=== PATIENT | female | born 1950 | race Caucasian/White ===

== ENCOUNTER 2019-09-14 14:16 | Outpatient (CLI) | payer MEDICARE, MEDICAID, SELFPAY ==
--- NOTE | 2019-09-14 14:25 | XR_ITS ---
WS: [id number] SCREENING DEXA SCAN NATIONSPLAY CLINICAL INFORMATION: POST MENOPAUSAL COMPARISON: None. FINDINGS: The L1-L4 bone mineral density measures 1.065 g/cm2. This corresponds to a T score score of -1.0 and Z score of -0.5. Left femoral neck bone mineral density measures 0.809 g/cm2. This corresponds to a T score of -1.6 an d Z score of -1.0. Right femoral neck bone mineral density measures 0.849 g/cm2. This corresponds to a T score -1.3of an d Z score of -0.7. Mean femoral neck bone mineral density measures 0.829 g/cm2. This corresponds to a T score of -1.4 an d Z score of -0.8. XR/XR DEXA axial skeleton* [id number] IMPRESSION: Osteopenia. Patient's FRAX calculated 10 year probability for major osteoporotic fracture i s 13.5 % and osteoporotic hip fracture is 4.8%.
== END 2019-09-14 14:17 | disposition home or self-care (01) ==
LOC: RADWPI 14:23
PROVIDERS: Family Provider Internal Medicine; PCP Internal Medicine; Visit Provider Internal Medicine
DX: Z78.0 Asymptomatic menopausal state (principal); M85.89 Other specified disorders of bone density and structure, multiple sites
CPT/HCPCS: 77080

== ENCOUNTER 2021-01-11 09:51 | Day surgery (SDC) | payer MEDICARE, MEDICAID, SELFPAY ==
[2021-01-11] VITALS (7 sets, daily range): BP systolic 119–152; BP diastolic 61–88; PULSE 65–84; RESP 16–19; TEMP 36.3–36.8; O2SAT 94–98; BMI 49.4
--- NOTE | 2021-01-11 09:56 | ED_ITS ---
HPI - Skin/Abscess/Foreign Bdy General: Chief complaint: General Medical Stated complaint: [facility] sent for drainage Time Seen by Provider: 01/11/21 09:53 History of Present Illness: HPI narrative: 70-year-old female has an abscess of the left breast. She has an inverted nipple as well. She has had this abscess flareup several times in the past I recommended incision and drainage and she is declined she did have a culture to grew out MRSA per her report in the past. She denies any fever sweats or chills recently in the last week or so it has becoming increasing painful swollen and indurated. MD complaint: abscess/boil (Left breast) Onset (ago): week(s) Tetanus up to date: unsure Severity: moderate Quality: aching Pain Consistency: constant Relieving factors: rest Exacerbating factors: palpation and movement Context: other (Recurrent breast abscess) Associated symptoms: Reports nausea; Deny arthralgias, chills, cough, fever(s), itching, myalgias, rigidity, short of breath or vomiting Treatments prior to arrival: none Review of Systems Const: Denies: fever(s) or chills ENMT: Denies: throat pain, ear or mastoid pain, nasal discharge or nasal congestion Card: Denies: chest pain, edema, dyspnea on exertion or orthopnea Resp: Denies: dyspnea, productive cough or non-productive cough GI: Reports: nausea; Denies: vomiting : Denies: flank pain, difficulty voiding, dysuria, urinary frequency or urinary urgency PFSH ED PFSH: Medical History Arthritis COPD (chronic obstructive pulmonary disease) GERD (gastroesophageal reflux disease) Hyperlipidemia Hypertension Hypothyroid Surgical History History of appendectomy History of cholecystectomy History of tonsillectomy Social History Smoking and tobacco status: current every day smoker cigarettes Packs smoked per day: 1 Years cigarettes smoked: 55 Alcohol intake: never Female Reproductive History: Spontaneous abortions: No Physical Exam Const: COMMON NORMALS: no acute distress GENERAL APPEARANCE: cooperative and comfortable ORIENTATION/CONSCIOUSNESS: Yes awake, Yes oriented to person, Yes oriented to place and Yes oriented to time HENMT: COMMON NORMALS: normocephalic, atraumatic, hearing grossly normal bilaterally and external ears normal HEAD & SCALP: normocephalic and atraumatic EXTERNAL EAR: Yes external ears normal Neck/C-Spine: COMMON NORMALS: no JVD Lymph: LYMPHATIC: no lymphadenopathy noted and no lymphedema noted Chest: OTHER: Inflamed periareolar area with induration and redness no pointing exquisitely tender inverted nipple no skin ulceration at this point Resp: COMMON NORMALS: normal respiratory effort, No retractions, No use of accessory muscles and clear to auscultation bilaterally AUSCULTATION: clear to auscultation bilaterally Cardio: COMMON NORMALS: no JVD, regular rate, regular rhythm and No murmurs present (Cardio) RATE: regular rate RHYTHM: regular rhythm GI: COMMON NORMALS: Soft to palpation and No hepatosplenomegaly present AUSCULTATION: Yes normoactive bowel sounds PALPATION: Yes Soft to palpation, No Tenderness to palpation present (GI), No Guarding due to palpation present (GI) and Yes No hepatosplenomegaly present Extremity: COMMON NORMALS: normal to inspection, capillary refill normal, no clubbing, cyanosis or edema, no calf tenderness and no pedal edema Neuro: SENSORIUM/ORIENTATION: Yes oriented to person, Yes oriented to place and Yes oriented to time Skin: COMMON NORMALS: no rashes or lesions noted GENERAL SKIN EXAM: no rashes or lesions noted Course Vital Signs: Vital signs: Vital Signs Temperature 98.1 F 01/11/21 14:47 Pulse Rate 69 01/11/21 14:50 Respiratory Rate 18 01/11/21 14:50 Blood Pressure 119/61 01/11/21 14:50 Pulse Oximetry 95 01/11/21 14:50 MDM - Skin/Abscess/Foreign Bdy MDM Narrative: Medical decision making narrative: Discussed with Dr. Gonzales. Patient will be taken from the ER to the operating room for incision and drainage IV antibiotics given here blood cultures done as well. Lab Data: Labs: Lab Results 01/11/21 01/11/21 Range/Units 10:25 10:25 WBC 15.6 H (4.0-10.0) 10^3/ uL RBC 4.84 (4.1-5.3) 10^6/u L Hgb 13.9 (11.5-15.3) g/dL Hct 41.8 (37.0-47.0) % MCV 86.4 (81-99) fL MCH 28.7 (28.0-34.0) pg MCHC 33.3 (30.0-36.0) g/dL RDW 13.7 (12.1-15.1) % Plt Count 354 (130-400) 10^3/c mm MPV 10.5 H (7.4-10.4) fL Neut % (Auto) 67.9 % Lymph % (Auto) 22.7 % [place] % (Auto) 6.4 % Eos % (Auto) 2.1 % Baso % (Auto) 0.5 % Neut # (Auto) 10.60 H (1.8-7.7) 10^3/u L Lymph # (Auto) 3.5 (0.8-4.8) 10^3/u L [place] # (Auto) 1.0 H (0.2-0.9) 10^3/u L Eos # (Auto) 0.3 (0.0-0.8) 10^3/u L Baso # (Auto) 0.1 (0.0-0.1) 10^3/u L Nucleated RBC % (a uto) 0 % Nucleated RBCs # 0.0 /100WBC Sodium 136 (136-145) mmol/L Potassium 3.2 L (3.5-5.1) mmol/L Chloride 95 L (98-107) mmol/L Carbon Dioxide 31 H (22-29) mmol/L Anion Gap 13.2 (5-19) BUN 18 (8-23) mg/dL Creatinine 0.8 (0.5-0.9) mg/dL GFR Calculation 70.9 L (90-130) mL/min Glucose 122 H (65-115) mg/dL Calculated Osmolal ity 285 (285-295) mOsm/k g Calcium 9.4 (8.5-10.5) mg/dL Discharge Plan Discharge Patient Disposition: Placed in Observation Discharge Diet: Advance as tolerated and Usual diet Discharge Activity: Increase activity as tolerated Coding Level of Care Code ED Sampling Theory Teacher for g Fwd Exam Comprehensive
--- NOTE | 2021-01-11 10:21 | USR_ITS ---
PROCEDURE INFORMATION: Exam: US Left Breast Limited; Cellulitis or Abscess Evaluation Exam date and time: 01/11/2021 10:21 AM Age: 70 years old Clinical indication: Breast pain; Left; Additional info: Abscess TECHNIQUE: Imaging protocol: Left breast ultrasound. Exam limited to the quadrant(s) of clinical concern. Exam focused on the evaluation of cellulitis or abscess. Exam is an emergent request and a non-BIRADS study. COMPARISON: US Breast Limited LEFT [id number] 03/29/2019 2:05 PM FINDINGS: Breasts: Multiple sonographic images in area of inflammation at the 4 o'clock axis. The left breast displays a circumscribed collection of complex fluid with mixed areas of decreased and increased echogenicity and smooth borders. This finding is in the subcutaneous space and measures 4.8 cm x 4 cm x 2.4 cm. This finding extends from the 3:00 o'clock. axis to the 5:00 o'clock axis. This finding likely represents a subcutaneous abscess. US/US breast LT limited* [id number] IMPRESSION: Positive evidence of subcutaneous abscess.
[2021-01-11 10:44] LABS: Basophils # 0.1 10^3/uL (0.0-0.1); Basophils % 0.5 %; Eosinophils # 0.3 10^3/uL (0.0-0.8); Eosinophils % 2.1 %; Hematocrit 41.8 % (37.0-47.0); Hemoglobin 13.9 g/dL (11.5-15.3); Lymphocytes # 3.5 10^3/uL (0.8-4.8); Lymphocytes % 22.7 %; Mean Corpuscular HGB Conc 33.3 g/dL (30.0-36.0); Mean Corpuscular Hemoglobin 28.7 pg (28.0-34.0); Mean Corpuscular Volume 86.4 fL (81-99); Mean Platelet Volume 10.5 fL (7.4-10.4); Monocytes % 6.4 %; Neutrophils % 67.9 %; Nucleated Red Blood Cells % 0 %; Platelet Count 354 10^3/cmm (130-400); Red Blood Count 4.84 10^6/uL (4.1-5.3); Red Cell Distribution Width 13.7 % (12.1-15.1); White Blood Count 15.6 10^3/uL (4.0-10.0)
[2021-01-11] MEDS: ondansetron 2 mg/ML SDV 2 mL 4 MG IVP (11:02)
[2021-01-11] MEDS: morphine 4 mg/mL SDV 1 mL IVP (11:04)
[2021-01-11 11:05] LABS: Anion Gap 13.2 (5-19); Blood Urea Nitrogen 18 mg/dL (8-23); Calcium 9.4 mg/dL (8.5-10.5); Carbon Dioxide 31 mmol/L (22-29); Chloride 95 mmol/L (98-107); Glomerular Filtration Rate 70.9 mL/min (90-130); Glucose 122 mg/dL (65-115); Osmolality Calculated 285 mOsm/kg (285-295); Potassium 3.2 mmol/L (3.5-5.1); Sodium 136 mmol/L (136-145)
[2021-01-11] MEDS: vancomycin 1,000 MG in sodium chloride 0.9% 250 ML 250 MG IV (11:06)
--- NOTE | 2021-01-11 13:37 | PM.HP ---
Providers/Chief Complaint Admitting Physician: General Surgery Javi Zaragoza MD Primary Care Provider: Juve Meyers DO Chief Complaint: [facility] sent for drainage History of Present Illness Mary Ford is a 70 year old female who says that about 3 weeks ago she started getting some redness and firmness in her left breast in an area that has given her similar problems in the past. She denies any fevers or chills but the area, unlike previous episodes, continue to get worse. She came to the emergency room and was found to have clinical evidence of an abscess in the left breast. This was confirmed by ultrasound. The emergency room physician thought that this was tender enough that they probably could not do a very good job draining it in the emergency department and suggested that I take her to the operating room. The patient says this has happened several times before but she has never had to have any surgery on the area. It sounds like they were watching some abnormalities on her mammograms but never did find any persistent suspicious lesions deserving of a biopsy and eventually cleared her to go back to routine screening studies. Review of Systems General: Reports: 10 or more systems reviewed and unremarkable except in HPI and below Const: Denies: fever(s) Medications/Allergies Home Medications Medication Instructions Recorded Confirmed Last Taken Type hydrochlorothiazide 12.5 mg tablet 12.5 mg PO DAILY@0600 07/18/20 01/11/21 01/11/21 History levothyroxine 100 mcg capsule 100 mcg PO DAILY@0400 07/18/20 01/11/21 01/11/21 History Aspir-81 81 mg PO DAILY@0601/11/21 01/11/21 01/11/21 History Vitamin D3 1 tab PO DAILY@59901/11/21 01/11/21 01/11/21 History divalproex 125 mg PO DAILY@59901/11/21 01/11/21 01/11/21 History doxycycline hyclate 100 mg PO BID@0600,1800 01/11/21 01/11/21 01/11/21 History esomeprazole magnesium 20 mg PO DAILY@0600 01/11/21 01/11/21 01/11/21 History oxybutynin chloride 10 mg PO DAILY@0600 01/11/21 01/11/21 01/11/21 History Allergies Allergy/AdvReac Type Severity Reaction Status Date / Time tetanus and diphtheria Allergy hives Verified 01/10/21 09:03 toxoids PFSH Acute PFSH: Medical History (Updated 01/11/21 @ 13:42 by Javi Zaragoza MD) Arthritis COPD (chronic obstructive pulmonary disease) GERD (gastroesophageal reflux disease) Hyperlipidemia Hypertension Hypothyroid Surgical History (Updated 01/11/21 @ 13:31 by Javi Zaragoza MD) History of appendectomy History of cholecystectomy History of tonsillectomy Social History (Updated 01/11/21 @ 13:31 by Javi Zaragoza MD) Smoking and tobacco status: current every day smoker cigarettes Packs smoked per day: 1 Years cigarettes smoked: 55 Alcohol intake: never Female Reproductive History: Spontaneous abortions: No Vitals/I&O/Wt Last Vital Signs Temp 98.3 F 01/11/21 09:59 Pulse 65 01/11/21 12:48 Resp 16 01/11/21 12:48 BP 152/88 01/11/21 12:48 Pulse Ox 96 01/11/21 12:48 Weight last 48 hrs Weight 270 lb Physical Exam Narrative: EXAM NARRATIVE: The patient was encountered in her room in the emergency department. She does not appear to be in any distress. The pupils seem equal. No carotid bruits are heard. The lungs are clear. The heart is regular. The left breast is red and swollen with a protuberant area to the lateral and somewhat inferior aspect of the areola (3-4 o'clock axis) with some early skin desquamation suggestive of an underlying abscess. The abdomen is morbidly obese but is soft. The extremities reveal no edema. Neurologically the patient appears to be grossly intact. Data : 01/11/21 10:25 01/11/21 10:25 Micro: Microbiology 01/11/21 10:35 Blood Culture - Preliminary Blood SPECIMEN COLLECTED 01/11/21 10:25 Blood Culture - Preliminary Blood SPECIMEN COLLECTED US: Radiologist's impression: Left breast ultrasound 01/11/2021: Multiple sonographic images in area of inflammation at the 4 o'clock axis. The left breast displays a circumscribed collection of complex fluid with mixed areas of decreased and increased echogenicity and smooth borders. This finding is in the subcutaneous space and measures 4.8 cm x 4 cm x 2.4 cm. This finding extends from the 3:00 o'clock. axis to the 5:00 o'clock axis. This finding likely represents a subcutaneous abscess. A&P Assessment and plan (1) Abscess of breast, left: It sounds like this has been somewhat of an intermittent problem for the patient over the past several years. Imaging has not revealed any significant abnormalities in the past, at least nothing persistent. I discussed an incision and drainage procedure with the patient. She would like to proceed. The patient has been n.p.o. since last night with the exception of a little bit of water this morning with her medications. I am going to make arrangements for an incision and drainage procedure in the operating room this afternoon. Status: Acute Attestations Medical Necessity Statement*: The patient would like to go home today if possible. I think this can be treated with an incision and drainage and the patient can be safely discharged on some oral antibiotics with plans for follow-up in my office. She will be kept in outpatient status for now. Coding Level of Care Code Acute Water Pollution Control Inspector for Raymundo Moya Diagnoses Abscess of breast, left N61.1
--- NOTE | 2021-01-11 14:23 | ANES.PREANE2 ---
Pre-Anesthetic Assessment Pre-Anesthetic Assessment: Height/Weight: Height 1.57 m Weight 122.47 kg Temp Pulse Resp BP Pulse Ox 97.4 F L 67 18 143/66 95 01/11/21 14:11 01/11/21 14:11 01/11/21 14:11 01/11/21 14:11 01/11/21 14:11 Proposed Procedure: Operation Date: 01/11/21 14:40 Proposed Procedures p Incision And Drainage left breast(Left) - Javi Zaragoza MD Was Beta Shayy taken within 24 hours: N/A Was Clonidine taken within 24 hours: N/A Social: Social History: Tobacco and No alcohol Exam: Pre-Anes Outpt Exam: alert, oriented x 3 and regular rate & rhythm Additional Exam Findings (including area of procedure): rhonchi Airway: Submandibular: WNL Cervical ROM: WNL MP: 2 Dentition: False Pulmonary: Pulmonary: COPD CV/HEM: CV/HEM: HTN Metabolic: Metabolic: Morbid obesity and Thyroid Anesthetic Plan: ASA status: 3E Anesthesia: Choice Risk of > 500 ml blood loss (7ml/kg in children): No PFSH Anesthesia PFSH: Medical History (Updated 01/11/21 @ 13:42 by Javi Zaragoza MD) Arthritis COPD (chronic obstructive pulmonary disease) GERD (gastroesophageal reflux disease) Hyperlipidemia Hypertension Hypothyroid Surgical History (Updated 01/11/21 @ 13:31 by Javi Zaragoza MD) History of appendectomy History of cholecystectomy History of tonsillectomy Social History (Updated 01/11/21 @ 13:31 by Javi Zaragoza MD) Smoking and tobacco status: current every day smoker cigarettes Packs smoked per day: 1 Years cigarettes smoked: 55 Alcohol intake: never Female Reproductive History: Spontaneous abortions: No Data Anesthesia CBC & Chem 7: 01/11/21 10:25 01/11/21 10:25 Other Labs: Laboratory Results - last 48 hr 01/11/21 01/11/21 10:25 10:25 WBC 15.6 H RBC 4.84 Hgb 13.9 Hct 41.8 MCV 86.4 MCH 28.7 MCHC 33.3 RDW 13.7 Plt Count 354 MPV 10.5 H Neut % (Auto) 67.9 Lymph % (Auto) 22.7 [place] % (Auto) 6.4 Eos % (Auto) 2.1 Baso % (Auto) 0.5 Neut # (Auto) 10.60 H Lymph # (Auto) 3.5 [place] # (Auto) 1.0 H Eos # (Auto) 0.3 Baso # (Auto) 0.1 Nucleated RBC % (auto) 0 Nucleated RBCs # 0.0 Sodium 136 Potassium 3.2 L Chloride 95 L Carbon Dioxide 31 H Anion Gap 13.2 BUN 18 Creatinine 0.8 GFR Calculation 70.9 L Glucose 122 H Calculated Osmolality 285 Calcium 9.4 Micro: Microbiology 01/11/21 10:35 Blood Culture - Preliminary Blood SPECIMEN COLLECTED 01/11/21 10:25 Blood Culture - Preliminary Blood SPECIMEN COLLECTED Cardiac Studies: No Data to Display
--- NOTE | 2021-01-11 14:40 | PM.OP ---
Operative Report Date of procedure: January 11, 2021 Pre-op Diagnosis: Left breast abscess. Post-op diagnosis: same Procedure Done: Incision and drainage of left breast abscess. Specimens removed/disposition: Aerobic and anaerobic cultures of left breast abscess. Surgeon: Javi Zaragoza Anesthesia: MAC Estimated blood loss (mL): 5 Complications: None. Condition: stable Disposition: PACU Procedure: The patient was brought to the operating room and was placed in a supine position on the operating room table. A monitored anesthetic was induced. The left breast was prepped and draped in a sterile fashion. A combination of 1% lidocaine with 1 to 100,000 parts epinephrine and 0.5% bupivacaine was used for local anesthesia throughout the procedure. A transverse incision was carried out over the fluctuant area of the abscess in the 3-4 o'clock axis of the left breast outside of the areola. The patient had a fairly superficial abscess cavity and a considerable amount of purulence was present. Aerobic and anaerobic cultures of the fluid were taken. The wound was then extensively irrigated with the Surgilav irrigation system. The wound was packed with a wet-to-dry 4 x 4 and a superficial dressing was applied. The patient was taken to the recovery area in stable condition postoperatively.
--- NOTE | 2021-01-11 15:32 | ANE.PACU2 ---
Inpatient post-anesthesia follow up: Airway intact: Yes Vital signs: Temperature 98.1 F Pulse Rate [Left R adial] 84 Pulse Rate 69 Respiratory Rate 18 Blood Pressure 119/61 Pulse Oximetry 95 Oxygen Delivery Me thod Room Air Oxygen Flow Rate 5 Fraction of Inspir ed Oxygen Hydration adequate: Yes Nausea and vomiting: No Pain level: 1 Mental status: Baseline
== END 2021-01-11 15:09 | disposition home or self-care (01) ==
LOC: ER 10:10 → OR 13:27
PROVIDERS: Emergency Provider Family Medicine; PCP Internal Medicine; Visit Provider Surgery
PROC: (CPT 19020; principal; 2021-01-11 14:30)
DX: N61.1 Abscess of the breast and nipple (principal); J44.9 Chronic obstructive pulmonary disease, unspecified; I10 Essential (primary) hypertension; E66.01 Morbid (severe) obesity due to excess calories; Z68.42 Body mass index [BMI] 45.0-49.9, adult; M19.90 Unspecified osteoarthritis, unspecified site; E78.5 Hyperlipidemia, unspecified; E03.9 Hypothyroidism, unspecified; F17.210 Nicotine dependence, cigarettes, uncomplicated
CPT/HCPCS: 19020; 76642; 80048; 85025; 87040; 87070; 87075; 87205; J2250; J2270; J2405; J2704; J3010; J3370; J3490; J7030; J7050

== ENCOUNTER 2022-04-03 07:40 | Outpatient (CLI) | payer MEDICARE, MEDICAID, SELFPAY ==
--- NOTE | 2022-04-03 07:53 | MM_ITS ---
WS: [id number] VIEWS: MLO and CC views both breasts. 3D digital tomosynthesis is also included in this exam. Comparison made with prior exam of 06/19/2014, 03/18/2017, 09/01/2018,. Findings: There was no sign of mass, architectural distortion or suspicious calcification in either breast. Fa [place]ty MM/[place] [id number] Impression: BI-RADS: 1-Negative FOLLOW-UP: 1 Year Follow-up This mammogram was also analyzed by the Computer Aided Detection System R2 Imag e [place].
== END 2022-04-03 07:41 | disposition home or self-care (01) ==
PROVIDERS: PCP Internal Medicine; Visit Provider Internal Medicine
DX: Z12.31 Encounter for screening mammogram for malignant neoplasm of breast (principal)
CPT/HCPCS: 77063; 77067

== ENCOUNTER → 2022-05-07 11:24 | Outpatient (BNVA) | payer MEDICARE, MEDICAID, SELFPAY | PROVIDERS: PCP Internal Medicine; Visit Provider Emergency Medicine | DX: M54.50 Low back pain, unspecified (principal); R10.30 Lower abdominal pain, unspecified | CPT/HCPCS: 72100; 72170 ==

== ENCOUNTER 2022-05-13 16:25 | Inpatient (IN) | payer MEDICARE, MEDICAID, SELFPAY ==
[2022-05-13 17:17] VITALS: BP 118/76; PULSE 89; RESP 18; TEMP 36.8; O2SAT 90; BMI 41.7
[2022-05-13 18:36] LABS: Urine Color Yellow (Yellow)
[2022-05-13 18:37] LABS: Add Urine Microscopic? YES; Bilirubin Urine Neg (Negative); Blood Urine 2+ (Negative); Glucose Urine UA Norm (Normal); Ketones Urine Negative (Negative); Leukocyte Esterase Urine 2+ (Negative); Nitrate Urine Negative (Negative); Protein Urine Trace (Negative); Specific Gravity, Urine 1.015 (1.005-1.030); Urine Appearance Cloudy (CLEAR); Urobilinogen Urine 4 mg/dL (Negative); pH Urine 6 (5-7)
[2022-05-13 18:41] LABS: Add Urine Culture? Yes; Bacteria Urine 2+ /hpf; RBC Urine 0-4 /hpf (0-2); Squamous Epithelial Cell Urine 0-4 /hpf (0-5); WBC Urine 40-55 /hpf (0-5)
--- NOTE | 2022-05-13 18:53 | W.ED.GENADLT ---
HPI - General Adult General: Chief complaint: ER Hold Stated complaint: Lower back pain Time Seen by Provider: 05/13/22 18:53 History of Present Illness: Ms. Ford is a 71-year-old lady with history of hypertension, thyroid disorder presenting to the emergency department due to worsening low back pain. She reports first noticing more constant pain approximately 1 to 2 weeks ago without known specific provoking factor. Since that time she has noticed increased pain in addition to numbness that was mostly primarily in the right groin region down the left as well. She endorses not be able to feel when she is wiping. Additionally she has episodes of urinary difficulty and incontinence though does endorse history of similar. Denies signs of systemic illness. Does have a history of falls but no known specific back injury in the past. Has seen primary care however course of symptoms has continued to worsen. No other specific changes in health, exacerbating, or alleviating factors identified. Onset (ago): day(s) Location: back and genitals Severity: severe Associated symptoms: Reports other Review of Systems General: Reports: 10 or more systems reviewed and unremarkable except in HPI and below PFSH ED PFSH: Medical History (Updated 05/14/22 @ 15:54 by oJb Covington MD) Arthritis COPD (chronic obstructive pulmonary disease) GERD (gastroesophageal reflux disease) Hyperlipidemia Hypertension Hypothyroid Surgical History History of appendectomy History of cholecystectomy History of tonsillectomy Social History Smoking and tobacco status: current every day smoker cigarettes Packs smoked per day: 1 Years cigarettes smoked: 55 Alcohol intake: never Female Reproductive History: Spontaneous abortions: No Physical Exam Const: COMMON NORMALS: alert GENERAL APPEARANCE: cooperative and well developed HENMT: COMMON NORMALS: normocephalic and atraumatic HEAD & SCALP: normocephalic and atraumatic Eye: COMMON NORMALS: conjunctivae normal CONJUNCTIVA: Yes conjunctivae normal SCLERA: sclerae normal Neck/C-Spine: COMMON NORMALS: supple GENERAL: Yes trachea midline Resp: COMMON NORMALS: normal respiratory effort EFFORT & INSPECTION: Yes able to speak in complete sentences Cardio: COMMON NORMALS: regular rate and regular rhythm RATE: regular rate RHYTHM: regular rhythm GI: COMMON NORMALS: Soft to palpation PALPATION: Yes Soft to palpation and No Tenderness to palpation present (GI) PERCUSSION: normal to percussion Back/Pelvis: LUMBAR SPINE/LOWER BACK: Yes lumbar spinal tenderness and No paraspinal muscle tenderness Extremity: GENERAL: Yes normal exam except as noted and No edema Neuro: COMMON NORMALS: moves all extremities SENSORIUM/ORIENTATION: Yes alert and No Orientation impaired Psych: COMMON NORMALS: mental status grossly normal and Normal thought process present THOUGHT PROCESS: Normal thought process present Course Vital Signs: Vital signs: Vital Signs Temperature 98.1 F 05/15/22 11:29 Pulse Rate 84 05/15/22 11:29 Respiratory Rate 17 05/15/22 11:29 Blood Pressure 105/57 05/15/22 11:29 Pulse Oximetry 90 05/15/22 11:29 Oxygen Delivery Me thod 05/15/22 11:29 Oxygen Flow Rate 2 05/14/22 06:47 MDM - General Adult Medical Decision Making 71-year-old lady presenting with worsening low back pain, saddle anesthesia, and urinary issues with mixed clinical picture. Patient's symptoms consistent with some element of spinal cord compression though MRI does not appear to show cord compression. Postvoid residual 425 cc. Possible UTI. Attempted transfer for further neurosurgical evaluation given that our spine surgeon is not on-call however despite numerous attempts no bed availability. I did speak with one neurosurgeon who reviewed imaging and agree about this is a mixed picture patient likely does not have acute surgical emergency requiring overnight intervention. I discussed with orthopedic spine Dr. Butts who will evaluate the patient. Patient admitted to observation hospitalist service for further evaluation. Medical Records I reviewed the patient's medical records. Lab Data I reviewed the patient's lab results. : 05/15/22 02:53 05/15/22 02:53 Radiology Impressions Lumbar Spine CT 05/13/22 19:20 IMPRESSION: 1. Multiple bilateral pulmonary nodules partially visualized measuring up to 12 mm, dedicated chest CT advised for further evaluation as findings are concerning for metastatic disease. 2. L3-L4 broad-based disc bulge with mild spinal canal and moderate bilateral foraminal narrowing. 3. L4-L5 broad-based disc bulge with moderate spinal canal and moderate to severe bilateral foraminal narrowing. 4. L5/S1 broad-based disc bulge with moderate bilateral foraminal narrowing and mild spinal canal narrowing. 5. Left adrenal hypertrophy suspected. Lumbar Spine MRI 05/13/22 22:47 IMPRESSION: Degenerative changes seen on an extremely limited exam. No focal mass. Laboratory Results WBC 14.4 10^3/uL (4.0-10.0) H 05/14/22 04:29 RBC 4.38 10^6/uL (4.1-5.3) 05/14/22 04:29 Hgb 12.6 g/dL (11.5-15.3) 05/14/22 04:29 Hct 38.0 % (37.0-47.0) 05/14/22 04:29 MCV 86.8 fl (81-99) 05/14/22 04:29 MCH 28.8 pg (28.0-34.0) 05/14/22 04:29 MCHC 33.2 g/dL (30.0-36.0) 05/14/22 04:29 RDW 14.5 % (12.1-15.1) 05/14/22 04:29 Plt Count 366 10^3/cmm (130-400) 05/14/22 04:29 MPV 9.8 fL (7.4-10.4) 05/14/22 04:29 Neut % (Auto) 71.7 % 05/14/22 04:29 Lymph % (Auto) 18.6 % 05/14/22 04:29 Stanley % (Auto) 7.6 % 05/14/22 04:29 Eos % (Auto) 1.0 % 05/14/22 04:29 Baso % (Auto) 0.5 % 05/14/22 04:29 Neut # (Auto) 10.35 10^3/uL (1.8-7.7) H 05/14/22 04:29 Lymph # (Auto) 2.7 10^3/uL (0.8-4.8) 05/14/22 04:29 Stanley # (Auto) 1.1 10^3/uL (0.2-0.9) H 05/14/22 04:29 Eos # (Auto) 0.2 10^3/uL (0.0-0.8) 05/14/22 04:29 Baso # (Auto) 0.1 10^3/uL (0.0-0.1) 05/14/22 04:29 Nucleated RBC % (auto) 0 % 05/14/22 04:29 Nucleated RBCs # 0.0 /100WBC 05/14/22 04:29 Sodium 137 mmol/L (136-145) 05/14/22 04:29 Potassium 3.7 mmol/L (3.5-5.1) 05/14/22 04:29 Chloride 93 mmol/L (98-107) L 05/14/22 04:29 Carbon Dioxide 31 mmol/L (22-29) H 05/14/22 04:29 Anion Gap 16.7 (5-19) 05/14/22 04:29 BUN 15 mg/dL (8-23) 05/14/22 04:29 Creatinine 0.7 mg/dL (0.5-0.9) 05/14/22 04:29 GFR Calculation Not Reportable 05/14/22 04:29 Glucose 136 mg/dL (65-115) H 05/14/22 04:29 Calculated Osmolality 287 mOsm/kg (285-295) 05/14/22 04:29 Calcium 11.1 mg/dL (8.5-10.5) H 05/14/22 04:29 Total Bilirubin 0.5 mg/dL (0.15-1.2) 05/14/22 04:29 AST 21 U/L (0-32) 05/14/22 04:29 ALT 11 U/L (0-33) 05/14/22 04:29 Alkaline Phosphatase 118 U/L (35-105) H 05/14/22 04:29 Total Protein 6.9 g/dL (6.6-8.7) 05/14/22 04:29 Albumin 3.3 g/dL (3.5-5.2) L 05/14/22 04:29 Globulin 3.6 g/dL (1.3-4.6) 05/14/22 04:29 Urine Color Yellow (Yellow) 05/13/22 17:53 Urine Appearance Cloudy (CLEAR) A 05/13/22 17:53 Urine pH 6 (5-7) 05/13/22 17:53 Ur Specific [place] 1.015 (1.005-1.030) 05/13/22 17:53 Urine Protein Trace (Negative) 05/13/22 17:53 Urine Glucose (UA) Norm (Normal) 05/13/22 17:53 Urine Ketones Negative (Negative) 05/13/22 17:53 Urine Blood 2+ (Negative) H 05/13/22 17:53 Urine Nitrate Negative (Negative) 05/13/22 17:53 Urine Bilirubin Neg (Negative) 05/13/22 17:53 Urine Urobilinogen 4 mg/dL (Negative) H 05/13/22 17:53 Ur Leukocyte Esterase 2+ (Negative) H 05/13/22 17:53 Urine RBC 0-4 /hpf (0-2) H 05/13/22 17:53 Urine WBC 40-55 /hpf (0-5) H 05/13/22 17:53 Ur Squamous Epith Cells 0-4 /hpf (0-5) H 05/13/22 17:53 Amorphous Sediment Not Reportable 05/13/22 17:53 Urine Bacteria 2+ /hpf (NONE) H 05/13/22 17:53 Discharge Plan Discharge Patient Disposition: Placed in Observation Admit Provider: Job Covington Clinical Impression: Back pain, Abnormal neurological exam Discharge Diet: Cardiac Discharge Activity: Increase activity as tolerated and As per PT/OT instructions Coding Level of Care Code ED Ict Quality Assurance Engineer for Chg Fwd Exam Comprehensive
--- NOTE | 2022-05-13 19:20 | CTR_ITS ---
PROCEDURE INFORMATION: Exam: CT Lumbar Spine Without Contrast Exam date and time: 05/13/2022 9:27 PM Age: 71 years old Clinical indication: Low back pain; Additional info: Low back pain, numbness TECHNIQUE: Imaging protocol: Computed tomography of the lumbar spine without contrast. Radiation optimization: All CT scans at this facility use at least one of these dose optimization techniques: automated exposure control; mA and/or kV adjustment per patient size (includes targeted exams where dose is matched to clinical indication); or iterative reconstruction. COMPARISON: CR XR lumbar spine 2-3V* [id number] 05/07/2022 11:34 AM RADIATION DOSE METRICS: Total DLP (mGy-cm): 1542.88 FINDINGS: Bones/joints: See L3-L4 finding. L1-L2: No significant disc protrusion. No severe spinal canal stenosis. No significant neural foraminal narrowing. L2-L3: No significant disc protrusion. No severe spinal canal stenosis. No significant neural foraminal narrowing. L3-L4: L3-L4 broad-based disc bulge with mild spinal canal and moderate bilateral foraminal narrowing. L4-L5: L4-L5 broad-based disc bulge with moderate spinal canal and moderate to severe bilateral foraminal narrowing. L5-S1: L5/S1 broad-based disc bulge with moderate bilateral foraminal narrowing and mild spinal canal narrowing. Lungs: Multiple bilateral pulmonary nodules partially visualized measuring up to 12 mm, dedicated chest CT advised for further evaluation as findings are concerning for metastatic disease. Soft tissues: Left adrenal hypertrophy suspected. CT/CT lumbar spine wo con* [id number] IMPRESSION: 1. Multiple bilateral pulmonary nodules partially visualized measuring up to 12 mm, dedicated chest CT advised for further evaluation as findings are concerning for metastatic disease. 2. L3-L4 broad-based disc bulge with mild spinal canal and moderate bilateral foraminal narrowing. 3. L4-L5 broad-based disc bulge with moderate spinal canal and moderate to severe bilateral foraminal narrowing. 4. L5/S1 broad-based disc bulge with moderate bilateral foraminal narrowing and mild spinal canal narrowing. 5. Left adrenal hypertrophy suspected.
--- NOTE | 2022-05-13 22:47 | MRR_ITS ---
PROCEDURE INFORMATION: Exam: MR Lumbar Spine Without and With Contrast Exam date and time: 05/13/2022 11:29 PM Age: 71 years old Clinical indication: Low back pain; Patient HX: Unable to urinate; Additional info: Low back pain, urinary changes, saddle anesthesia TECHNIQUE: Imaging protocol: Magnetic resonance imaging of the lumbar spine without and with contrast. Contrast material: MULTIHANCE; Contrast volume: 20 ml; Contrast route: INTRAVENOUS (IV); COMPARISON: CT lumbar spine wo con* [id number] 05/13/2022 9:27 PM FINDINGS: This exam is extremely limited due to motion. Bones/joints: Unremarkable. Normal alignment. No acute fractures. Normal marrow signal. Moderate degenerative changes throughout with annular disc bulges and facet hypertrophy with ligamentum flavum thickening at L3-L4 and L4-L5 cause severe spinal canal narrowing. There is also a central disc protrusion at L5-S1 which causes mild spinal canal narrowing. Spinal cord: Visualized cord, conus medullaris and cauda equina are unremarkable without compression. The conus terminates at T12-L1. Soft tissues: Unremarkable. MR/MR lumbar spine wo/w con [id number] IMPRESSION: Degenerative changes seen on an extremely limited exam. No focal mass.
[2022-05-13] MEDS: gadobenate dimeglumine 20 mL vial IV (23:36)
[2022-05-14] VITALS (7 sets, daily range): BP systolic 114–137; BP diastolic 60–102; PULSE 78–100; RESP 17–20; TEMP 36.7–37.2; O2SAT 88–93; BMI 34.1
--- NOTE | 2022-05-14 01:01 | PC.NURSE ---
425cc post void residual
[2022-05-14] MEDS: cefTRIAXone 1,000 MG in sodium chloride 0.9% (plus) 50 ML 100 MG IV (04:30)
[2022-05-14 04:37] LABS: Basophils # 0.1 10^3/uL (0.0-0.1); Basophils % 0.5 %; Eosinophils # 0.2 10^3/uL (0.0-0.8); Hemoglobin 12.6 g/dL (11.5-15.3); Lymphocytes # 2.7 10^3/uL (0.8-4.8); Lymphocytes % 18.6 %; Mean Corpuscular HGB Conc 33.2 g/dL (30.0-36.0); Mean Corpuscular Hemoglobin 28.8 pg (28.0-34.0); Mean Corpuscular Volume 86.8 fl (81-99); Mean Platelet Volume 9.8 fL (7.4-10.4); Monocytes # 1.1 10^3/uL (0.2-0.9); Monocytes % 7.6 %; Neutrophils # 10.35 10^3/uL (1.8-7.7); Neutrophils % 71.7 %; Nucleated Red Blood Cells % 0 %; Platelet Count 366 10^3/cmm (130-400); Red Blood Count 4.38 10^6/uL (4.1-5.3); Red Cell Distribution Width 14.5 % (12.1-15.1); White Blood Count 14.4 10^3/uL (4.0-10.0)
[2022-05-14 04:54] LABS: Alanine Aminotransferase 11 U/L (0-33); Albumin Level 3.3 g/dL (3.5-5.2); Alkaline Phosphatase 118 U/L (35-105); Anion Gap 16.7 (5-19); Aspartate Amino Transferase 21 U/L (0-32); Blood Urea Nitrogen 15 mg/dL (8-23); Calcium 11.1 mg/dL (8.5-10.5); Carbon Dioxide 31 mmol/L (22-29); Chloride 93 mmol/L (98-107); Globulin 3.6 g/dL (1.3-4.6); Glucose 136 mg/dL (65-115); Osmolality Calculated 287 mOsm/kg (285-295); Potassium 3.7 mmol/L (3.5-5.1); Sodium 137 mmol/L (136-145); Total Bilirubin 0.5 mg/dL (0.15-1.2); Total Protein 6.9 g/dL (6.6-8.7)
--- NOTE | 2022-05-14 05:42 | PM.HP ---
Providers/Chief Complaint Primary Care Provider: Juve Meyers DO Chief Complaint: Lower back pain History of Present Illness Mary Ford is a 71 year old female with past medical history of hypothyroidism, hypertension, COPD, came in with chief complaint of worsening lower back pain, patient started having lower back pain about a month back, and since then it has progressively worsened, lately according to her in the last 2 weeks she has also started experiencing difficulty with urination, though she has prior history of urinary incontinence, she is also complaining of sensory loss in the perianal area, she says that she has decreased sensations while wiping. She has denied any trauma to the back. Initial she was being transferred to outside facility for possible cauda equina syndrome management, but due to difficulty with transfer, spine surgeon was consulted, and he has agreed to see the patient in the morning though he is not on-call today. Pertinent imaging studies done in the ER: MR lumbar spine wo/w con?: Bones/joints: Unremarkable. Normal alignment. No acute fractures. Normal marrow signal. Moderate degenerative changes throughout with annular disc bulges and facet hypertrophy with ligamentum flavum thickening at L3-L4 and L4-L5 cause severe spinal canal narrowing. There is also a central disc protrusion at L5-S1 which causes mild spinal canal narrowing. Spinal cord: Visualized cord, conus medullaris and cauda equina are unremarkable without compression. The conus terminates at T12-L1. Soft tissues: Unremarkable. ?CT lumbar spine wo con: L3-L4 broad-based disc bulge with mild spinal canal and moderate bilateral foraminal narrowing. L4-L5 broad-based disc bulge with moderate spinal canal and moderate to severe bilateral foraminal narrowing. L5/S1 broad-based disc bulge with moderate bilateral foraminal narrowing and mild spinal canal narrowing. Review of Systems General: Reports: 10 or more systems reviewed and unremarkable except in HPI and below Const: Denies: fever(s), chills, body aches, change in appetite or diaphoresis Card: Denies: palpitations, edema, swelling of feet/ankles, dyspnea on exertion, orthopnea or leg pain with exertion Resp: Denies: dyspnea, productive cough, wheezing or pain on inspiration GI: Denies: abdominal pain, nausea, vomiting or diarrhea : Denies: flank pain Musc: Reports: back pain; Denies: extremity pain or extremity swelling Neuro: Denies: headache(s), difficulty walking or confusion Medications/Allergies Home Medications Medication Instructions Recorded Confirmed Last Taken Type hydrochlorothiazide 12.5 mg tablet 12.5 mg PO DAILY@0607/18/20 05/07/22 01/11/21 History levothyroxine 100 mcg capsule 100 mcg PO DAILY@0400 07/18/20 05/07/22 01/11/21 History Aspir-81 81 mg PO DAILY@59901/11/21 05/07/22 01/11/21 History Vitamin D3 1 tab PO DAILY@59901/11/21 05/07/22 01/11/21 History divalproex 125 mg tablet,delayed 125 mg PO DAILY@59901/11/21 05/07/22 01/11/21 History release esomeprazole magnesium 20 mg 20 mg PO DAILY@59901/11/21 05/07/22 01/11/21 History capsule,delayed release oxybutynin chloride 10 mg 10 mg PO DAILY@59901/11/21 05/07/22 01/11/21 History tablet,extended release 24 hr acetaminophen 500 mg tablet 500 mg PO Q6H PRN 07/04/21 05/07/22 Unknown History (Tylenol Extra Strength) ibuprofen 600 mg tablet 600 mg PO Q8H PRN 07/04/21 05/07/22 Unknown History sulfamethoxazole 800 1 tab PO BID 12 days #24 tabs 10/02/21 05/07/22 Unknown Rx mg-trimethoprim 160 mg tablet nystatin 100,000 unit/gram topical 1 applic topical BID #15 grams 11/27/21 05/07/22 Unknown Rx cream sulfamethoxazole 800 1 tab PO BID 10 days #20 tabs 04/09/22 05/07/22 Unknown Rx mg-trimethoprim 160 mg tablet yymilov-dkujnsfpybzio-cwobvxou 250 1 tab PO Q6H PRN pain #30 tabs 04/15/22 05/07/22 Unknown Rx mg-250 mg-65 mg tablet methocarbamol 750 mg tablet 750 mg PO TID 5 days #15 tabs 04/15/22 05/07/22 Unknown Rx prednisone 10 mg tablet 30 mg PO DAILY 5 days #15 tabs 04/15/22 05/07/22 Unknown Rx hydrocodone 5 mg-acetaminophen 325 1 tab PO Q6H PRN pain 5 days #20 05/07/22 05/07/22 Unknown Rx mg tablet tabs Allergies Allergy/AdvReac Type Severity Reaction Status Date / Time codeine Allergy unk Verified 05/07/22 10:20 tetanus and diphtheria Allergy hives Verified 05/07/22 10:20 toxoids PFSH Acute PFSH: Medical History (Updated 05/14/22 @ 05:44 by Álvaro Ramirez MD) Arthritis COPD (chronic obstructive pulmonary disease) GERD (gastroesophageal reflux disease) Hyperlipidemia Hypertension Hypothyroid Surgical History History of appendectomy History of cholecystectomy History of tonsillectomy Social History Smoking and tobacco status: current every day smoker cigarettes Packs smoked per day: 1 Years cigarettes smoked: 55 Alcohol intake: never Female Reproductive History: Spontaneous abortions: No Vitals/I&O/Wt Last Vital Signs Temp 98.3 F 05/13/22 17:17 Pulse 89 05/13/22 17:17 Resp 18 05/13/22 17:17 BP 118/76 05/13/22 17:17 Pulse Ox 90 05/13/22 17:17 O2 Del Method 05/13/22 17:17 Weight last 48 hrs Weight 103.419 kg Physical Exam Const: COMMON NORMALS: patient oriented x3 Resp: COMMON NORMALS: normal respiratory effort, No retractions, No use of accessory muscles and clear to auscultation bilaterally EFFORT & INSPECTION: Yes symmetric chest movement AUSCULTATION: clear to auscultation bilaterally Cardio: COMMON NORMALS: regular rate, regular rhythm, S1 normal heart sound present, S2 normal heart sound present, No gallops present (Cardio), No murmurs present (Cardio), No rub (Cardio) and Peripheral pulses 2+ throughout RATE: regular rate RHYTHM: regular rhythm HEART SOUNDS: S1 normal heart sound present and S2 normal heart sound present PERIPHERAL PULSES: Peripheral pulses 2+ throughout GI: COMMON NORMALS: Normal to inspection, nondistended, normoactive bowel sounds present, Soft to palpation, non-tender, No hepatosplenomegaly present and no masses AUSCULTATION: Yes normoactive bowel sounds PALPATION: Yes Soft to palpation and Yes No hepatosplenomegaly present RECTAL EXAM: deferred Extremity: COMMON NORMALS: no clubbing, cyanosis or edema and no pedal edema Neuro: COMMON NORMALS: patient oriented x3 Data : 05/14/22 04:29 05/14/22 04:29 A&P Assessment and plan (1) Back pain: (2) UTI (urinary tract infection): Plan 71 year old female with past medical history of hypothyroidism, hypertension, COPD, came in with chief complaint of worsening lower back pain, patient started having lower back pain about a month back, and since then it has progressively worsened, lately according to her in the last 2 weeks she has also started experiencing difficulty with urination, though she has prior history of urinary incontinence, she is also complaining of sensory loss in the perianal area, she says that she has decreased sensations while wiping. She has denied any trauma to the back. Initial she was being transferred to outside facility for possible cauda equina syndrome management, but due to difficulty with transfer, spine surgeon was consulted, and he has agreed to see the patient in the morning though he is not on-call today. Assessment: Lower back pain likely secondary spinal stenosis Rule out cauda equina syndrome UTI Hypertension COPD Hypothyroidism Plan: Patient has received 1 dose of dexamethasone, spine surgeon has been consulted by ER, will see the patient in the morning. Pain control Currently has indwelling Brody catheter in place Follow urine culture Currently on Rocephin for UTI CODE STATUS: Full code DVT prophylaxis: On Lovenox Attestations Medical Necessity Statement*: Patient needs to be in hospital for management of lower back pain, UTI. Anticipated length of stay greater than 2 midnights Coding Level of Care Code Acute Regulatory Associate for [facility] Fwd Exam Detailed Diagnoses Back pain M54.9 UTI (urinary tract infection) N39.0
[2022-05-14] MEDS: fentaNYL 50 mcg/mL INJ 2mL IVP (06:18)
[2022-05-14] MEDS: dexamethasone 10 mg/mL INJ 6 MG IVP (06:18)
[2022-05-14] MEDS: divalproex DR 250 mg Tablet 125 MG PO (06:19)
[2022-05-14] MEDS: pantoprazole DR 40 mg Tablet PO (06:19)
[2022-05-14] MEDS: enoxaparin 40 mg/0.4 mL Syringe SUBCUT (06:19)
--- NOTE | 2022-05-14 08:05 | PC.PHAR ---
pt states she takes care of her own medications-pt states she hasnt taken a 81mg aspirin daily for 2 months or so-pt states she has a combivent respimat inhaler and uses prn ext med history shows last filled 06/13/21-
--- NOTE | 2022-05-14 13:07 | P.CONIM_ITS ---
Providers/Reason For Consult Consulting Physician/Specialty*: Ortho Spine Reason for Consult*: Low back pain with leg weakness Attending Physician: Job Covington Primary Care Provider: Juve Meyers DO History of Present Illness History of Present Illness Mary Ford is a 71 year old female who presents to [facility] ER complaining of low back lower extremity weakness that is progressively intensified over the last 2 weeks. She reports having back pain for a number of years but is progressively gotten worse as of late. She states she has had difficult time walking distanc es with her legs starting to become more painful. She has noticed numbness when she tries to wipe. She has noticed increased pain in the low back right buttock and down the right leg predominantly compared to the left. This is progressively intensified over the last 2 weeks as well. She describes the pain as 8 out of 10 on the pain scale. She reports difficulty with urinating as well as having bowel movements. She states she is able to walk. She describes the back pain is sharp stabbing in nature with numbness in her perineum. When she walks distances she describes pain traveling down into her legs and feet. Rest gives her some temporary relief prolonged standing walking has made things much worse. Pain medication is given her some temporary relief. This is affected her ability to take care of her self that is why it she had presented to the emergency room. An extensive review of the patient's past medical history, surgical history, allergies, medications, family history, social history, and review of systems was completed Review of Systems General: Reports: 10 or more systems reviewed and unremarkable except in HPI and below Const: Denies: fever(s), chills, body aches, change in appetite or diaphoresis Card: Denies: palpitations, edema, swelling of feet/ankles, dyspnea on exertion, orthopnea or leg pain with exertion Resp: Denies: dyspnea, productive cough, wheezing or pain on inspiration GI: Denies: abdominal pain, nausea, vomiting or diarrhea : Denies: flank pain Musc: Reports: back pain; Denies: extremity pain or extremity swelling Neuro: Denies: headache(s), difficulty walking or confusion Medications/Allergies Home Medications Medication Instructions Recorded Confirmed Last Taken Type esomeprazole magnesium 20 mg 20 mg PO QAM 01/11/21 05/14/22 01/11/21 History capsule,delayed release oxybutynin chloride 10 mg 10 mg PO QAM 01/11/21 05/14/22 01/11/21 History tablet,extended release 24 hr acetaminophen 500 mg tablet 1,000 mg PO Q4H PRN Pain 07/04/21 05/14/22 Unknown History (Tylenol Extra Strength) rmuoout-wqozhuaueoitw-gqjcyeeo 250 1 tab PO Q6H PRN pain #30 tabs 04/15/22 05/14/22 Unknown Rx mg-250 mg-65 mg tablet hydrocodone 5 mg-acetaminophen 325 1 tab PO Q6H PRN pain 5 days #20 05/07/22 05/14/22 Unknown Rx mg tablet tabs atorvastatin 20 mg tablet 20 mg PO BEDTIME 05/14/22 05/14/22 Unknown History cholecalciferol (vitamin D3) 25 25 mcg PO QAM 05/14/22 05/14/22 Unknown History mcg (1,000 unit) tablet (Vitamin D3) divalproex 125 mg tablet,delayed 125 mg PO BID@07,17 05/14/22 05/14/22 Unknown History release hydrochlorothiazide 25 mg tablet 25 mg PO QAM 05/14/22 05/14/22 Unknown History ipratropium 20 mcg-albuterol 100 1 puff inhalation QID PRN 05/14/22 05/14/22 Unknown History mcg/actuation mist for inhalation Shortness Of Breath (Combivent Respimat) levothyroxine 100 mcg tablet 100 mcg PO DAILY@21 05/14/22 05/14/22 Unknown History meloxicam 7.5 mg tablet 7.5 mg PO DAILY PRN Pain 05/14/22 05/14/22 Unknown History Allergies Allergy/AdvReac Type Severity Reaction Status Date / Time codeine Allergy unk Verified 05/14/22 07:55 tetanus and diphtheria Allergy hives Verified 05/14/22 07:55 toxoids Current Medications Generic Name Dose Route Start Last Admin Trade Name Freq PRN Reason Stop Dose Admin Divalproex Sodium 125 mg 05/14/22 06:00 05/14/22 06:[address] 250 Mg Tablet PO 125 mg DAILY@0600 PENDING SALE TO [facility] Administration Enoxaparin Sodium 40 mg 05/14/22 05:45 05/14/22 06:19 Enoxaparin 40 Mg/0.4 Ml Syringe SUBCUT 40 mg Q24H VANDANA Administration Pantoprazole Sodium 40 mg 05/14/22 06:00 05/14/22 06:[address] 40 Mg Tablet PO 40 mg DAILY@0600 VANDANA Administration PFSH Acute PFSH: Medical History (Updated 05/14/22 @ 13:16 by Juan Acevedo PA-C) Arthritis COPD (chronic obstructive pulmonary disease) GERD (gastroesophageal reflux disease) Hyperlipidemia Hypertension Hypothyroid Surgical History History of appendectomy History of cholecystectomy History of tonsillectomy Social History Smoking and tobacco status: current every day smoker cigarettes Packs smoked per day: 1 Years cigarettes smoked: 55 Alcohol intake: never Female Reproductive History: Spontaneous abortions: No Vitals/I&O/Wt Last Vital Signs Temp 98.3 F 05/13/22 17:17 Pulse 96 05/14/22 11:43 Resp 19 H 05/14/22 06:47 BP 114/98 05/14/22 11:43 Pulse Ox 91 05/14/22 11:43 O2 Del Method 05/14/22 11:43 O2 Flow Rate 2 05/14/22 06:47 Weight last 48 hrs Weight 228 lb Physical Exam Narrative: She is alert orient x3 she has good general appearance, moderate acute distress with normal mood and affect. Patient demonstrates standing in ER bay 14, and demonstrates raising up onto heels and toes without difficulty. Exhibits normal coordination and normal stability. Moderate palpatory or percus beth pain throughout the paraspinous musculature of the thoracolumbar spine. Decreased range of motion to the lumbar spine due to her level of pain, normal sensation to light touch through all dermatomal layers. Normal sensation light touch down both lower extremities with 5/5 motor strength throughout all motor groups. No palpable pain over the SI joints bilaterally. Positive Quintin and Fabere sign. Negative straight leg raise bilaterally. Skin is clear warm with normal sensation to light touch, calves are supple with no medial thigh tenderness, negative Homans' sign. No palpable lymphadenopathy bilaterally. Reflexes are 1+ and symmetric about the knees and Achilles. No hyperreflexia or clonus. Downgoing Babinski's bilaterally. Dorsalis pedis and posterior tibial pulses are 2+. No palpable edema bilaterally. HENMT: COMMON NORMALS: normocephalic and atraumatic HEAD & SCALP: normoce phalic and atraumatic Resp: COMMON NORMALS: normal respiratory effort Cardio: COMMON NORMALS: regular rate and regular rhythm RATE: regular rate RHYTHM: regular rhythm GI: COMMON NORMALS: Soft to palpation and non-tender PALPATION: Yes Soft to palpation : COMMON NORMALS: Yes no CVA tenderness BLADDER/KIDNEY EXAM: Yes no CVA tenderness Back/Pelvis: COMMON NORMALS: no CVA tenderness Psych: COMMON NORMALS: mental status grossly normal and cooperative Data : 05/14/22 04:29 05/14/22 04:29 A&P Assessment and plan (1) Spinal stenosis, lumbar region, with neurogenic claudication: Reviewed the MRI scan at length with her with independent interpretation showing degenerative disc disease throughout the lumbar spine with facet arthropathy. There is lumbar stenosis mildly at L3-4 severely at L4-5 L5-S1 with evidence of lipomatosis as well. Discussed options with the patient that include conserva tive management with Decadron to try and get her outpatient to a pain clinic for consideration of work-up of her pain generators. She would like to pursue the conservative avenue and wants to avoid surgery. We will have physical therapy work with mobilization we will start Decadron 10 mg IV to help reduce the acute flareup of her pain. Incentive spirometry for pulmonary toilet. Discussed this at length with Dr. Butts he agrees with above-stated plan. More than 50% of the time spent with the patient today involved coordination of care, counseling and discussion of conservative versus surgical treatment options. Total amount of time spent with the patient was 45 minutes. (2) DDD (degenerative disc disease), lumbosacral: Coding Level of Care Code New Pt Acute Aerial Advertiser for Chg Fwd Patient Type New History Detailed Exam Detailed Medical Decision Making Moderate Complexity Diagnoses Spinal stenosis, lumbar region, with neurogenic claudication M48.062 DDD (degenerative disc disease), lumbosacral M51.37 Time Spent (min) 45
[2022-05-14] MEDS: dexamethasone 10 mg/mL INJ IVP (15:01)
--- NOTE | 2022-05-14 15:51 | PM.PN ---
Subjective Subjective: She is uncomfortable in the ER bed, having pain toward her tailbone, also feeling hungry. Required some assistance with urination. Had earlier discussion with orthopedic surgery and would prefer to avoid surgery if possible. We discussed with her our phone call conversation with Dr. Kuo with regards to endometrial biopsy results coming back positive with adenocarcinoma. Vitals/I&O/Wt Last Vital Signs Temp 98.0 F 05/14/22 13:15 Pulse 92 05/14/22 13:15 Resp 18 05/14/22 13:15 BP 128/68 05/14/22 13:15 Pulse Ox 90 05/14/22 13:15 O2 Del Method 05/14/22 13:15 O2 Flow Rate 2 05/14/22 06:47 Weight last 48 hrs Weight 103.419 kg Physical Exam Narrative: Accompanied by her sister. Const: COMMON NORMALS: patient oriented x3 and alert GENERAL APPEARANCE: cooperative and anxious NUTRITIONAL APPEARANCE: obese ORIENTATION/CONSCIOUSNESS: Yes awake OTHER: Labile affect HENMT: COMMON NORMALS: oropharynx normal Neck/C-Spine: COMMON NORMALS: no JVD Resp: COMMON NORMALS: normal respiratory effort and clear to auscultation bilaterally AUSCULTATION: clear to auscultation bilaterally Cardio: COMMON NORMALS: no JVD, regular rhythm, S1 normal heart sound present, S2 normal heart sound present and No murmurs present (Cardio) RHYTHM: regular rhythm HEART SOUNDS: S1 normal heart sound present and S2 normal heart sound present GI: COMMON NORMALS: Normal to inspection, nondistended, normoactive bowel sounds present, Soft to palpation and non-tender PALPATION: Yes Soft to palpation Back/Pelvis: OTHER: Antalgic positioning in bed. In pain. Extremity: COMMON NORMALS: no joint enlargement and no pedal edema Neuro: COMMON NORMALS: patient oriented x3 and moves all extremities SENSORIUM/ORIENTATION: Yes alert Skin: COMMON NORMALS: no rashes or lesions noted GENERAL SKIN EXAM: no rashes or lesions noted Data : 05/14/22 04:29 05/14/22 04:29 A&P Assessment and plan (1) Back pain: Improved and orthopedic assessment. Continue optimization of pain control. Will obtain PT, OT assessment. Straight catheterization if needed for after voiding trial. Hopefully retention improves with improvement in pain. She would like to avoid surgery if possible. Resume diet. (2) UTI (urinary tract infection): Continue ceftriaxone, follow-up urine culture. (3) Endometrial cancer: New diagnosis, with positive results from recent endometrial biopsy done by Dr. Kuo. I was notified by her by phone. Adamant see result in the system. Records requested. Discussed with patient, she will need referral to [facility]. She has been to one of the hospitals in [place], cannot recall if it was [facility] or [facility], will try to figure out for referral. Plan Hypertension COPD Hypothyroidism Attestations Medical Necessity Statement*: Continue admission for optimization of back pain with moderate to severe degenerative disc disease with severe spinal canal stenosis, treatment of UTI, arrangements for further assessment and management of newly diagnosed endometrial cancer. Coding Level of Care Code Acute Chemical Production Machine Operator for g Fwd Diagnoses Back pain M54.9 UTI (urinary tract infection) N39.0 Endometrial cancer C54.1
[2022-05-14] MEDS: acetaminophen 325 mg Tablet 650 MG PO (18:46)
[2022-05-14] MEDS: TRAMadol 50 mg Tablet PO (18:47)
[2022-05-15 00:35] VITALS: BP 133/92; PULSE 91; RESP 18; TEMP 36.6; O2SAT 97
[2022-05-15 03:15] LABS: Basophils % 0.1 %; Hematocrit 42.5 % (37.0-47.0); Hemoglobin 13.6 g/dL (11.5-15.3); Lymphocytes # 1.7 10^3/uL (0.8-4.8); Lymphocytes % 12.1 %; Mean Corpuscular Hemoglobin 27.8 pg (28.0-34.0); Mean Corpuscular Volume 86.9 fl (81-99); Mean Platelet Volume 9.6 fL (7.4-10.4); Monocytes # 0.6 10^3/uL (0.2-0.9); Monocytes % 4.7 %; Neutrophils # 11.25 10^3/uL (1.8-7.7); Neutrophils % 82.2 %; Nucleated Red Blood Cells % 0 %; Platelet Count 423 10^3/cmm (130-400); Red Blood Count 4.89 10^6/uL (4.1-5.3); Red Cell Distribution Width 14.6 % (12.1-15.1); White Blood Count 13.7 10^3/uL (4.0-10.0)
[2022-05-15 03:38] LABS: Anion Gap 17.6 (5-19); Blood Urea Nitrogen 22 mg/dL (8-23); Calcium 11.6 mg/dL (8.5-10.5); Carbon Dioxide 30 mmol/L (22-29); Chloride 93 mmol/L (98-107); Glucose 158 mg/dL (65-115); Magnesium 2.2 mg/dL (1.7-2.3); Osmolality Calculated 291 mOsm/kg (285-295); Potassium 3.6 mmol/L (3.5-5.1); Sodium 137 mmol/L (136-145)
[2022-05-15] MEDS: levothyroxine 100 mcg Tablet PO (04:19)
[2022-05-15] MEDS: pantoprazole DR 40 mg Tablet PO (04:19)
[2022-05-15] MEDS: enoxaparin 40 mg/0.4 mL Syringe SUBCUT (04:20)
[2022-05-15] MEDS: acetaminophen 325 mg Tablet 650 MG PO ×2 (04:20→13:25)
[2022-05-15] MEDS: TRAMadol 50 mg Tablet PO ×2 (04:20→11:40)
[2022-05-15] MEDS: divalproex DR 250 mg Tablet 125 MG PO (04:22)
[2022-05-15 04:51] VITALS: BP 115/81; PULSE 92; RESP 15; TEMP 36.4; O2SAT 90
--- NOTE | 2022-05-15 04:51 | PC.NURSE ---
Patient required straight cath at beginning of shift due to urinary retention. This morning, patient attempt to void on bedside commode. Patient did not have any urine in commode. Bladder scan immediately after attempting to void showed 285ml. Patient asking if we can just leave one in instead doing it over and over. Dr. Ramirez notified Brody catheter ordered.
[2022-05-15 06:21] VITALS: TEMP 36.6
--- NOTE | 2022-05-15 06:21 | PM.PN ---
Subjective Subjective: Patient resting comfortably. Upon waking her up she states she has abdominal pain some back pain. She is moving her legs without any limitations. Denies any chest pain, shortness of breath or headaches. Vitals/I&O/Wt Last Vital Signs Temp 97.5 F L 05/15/22 04:51 Pulse 92 05/15/22 04:51 Resp 15 05/15/22 04:51 BP 115/81 05/15/22 04:51 Pulse Ox 90 05/15/22 04:51 O2 Del Method 05/14/22 15:53 O2 Flow Rate 2 05/14/22 06:47 05/14/22 05/14/22 05/15/22 14:59 22:59 06:59 Intake Total 720 / 720 Output Total 425 / 425 250 / 675 Balance 295 / 295 -250 / 45 Weight last 48 hrs Weight 170 lb 3.2 oz Weight 186 lb 8 oz Weight 228 lb Physical Exam Narrative: She is alert orient x3 she has good general appearance normal mood and affect this morning. She is some mild palpatory pain in the right buttock region she is moving both lower extremities with 5/5 strength normal sensation to light touch feet are warm legs are warm good cap refill. Calves are supple no medial thigh tenderness. Dorsalis pedis and posterior tibial pulses are palpable. Mild diffuse palpatory pain through the paraspinous musculature of the lumbar spine no palpable pain in the thoracic spine. She is moving both upper extremities without any limitations good sensation light touch in her shoulders elbows and hands radial pulses are 2+. No palpable neck pain. HENMT: COMMON NORMALS: normocephalic HEAD & SCALP: normocephalic Resp: COMMON NORMALS: normal respiratory effort Cardio: COMMON NORMALS: regular rate and regular rhythm RATE: regular rate RHYTHM: regular rhythm GI: COMMON NORMALS: Soft to palpation PALPATION: Yes Soft to palpation : COMMON NORMALS: Yes no CVA tenderness BLADDER/KIDNEY EXAM: Yes no CVA tenderness Back/Pelvis: COMMON NORMALS: no CVA tenderness Psych: COMMON NORMALS: mental status grossly normal and cooperative Urinary Catheter Management: Brody: Cath Placed During This Visit: yes Reason for Continuing Indwelling Catheter: Acute Urinary Retention or Obstruction Urinary Catheter Date of Insertion: 05/15/22 Urinary Catheter Time of Insertion: 05:15 Data : 05/15/22 02:53 05/15/22 02:53 A&P Assessment and plan (1) DDD (degenerative disc disease), lumbosacral: Decadron has helped calm down her back and leg symptoms. From an orthopedic standpoint would encourage physical therapy to work with mobilization. Encourage incentive spirometry for pulmonary toilet. Laxative choice to help with bowel movements. Discussed at length with the patient again reiterating our conversation in the emergency room about outpatient injections at the pain clinic. She once again states that she does not want surgery. I discussed that if we can gain control of her pain we can set her up outpatient for pain management and follow-up in the office to check her progress. We will defer to the medical team for continued medical management and anticoagulation. (2) Spinal stenosis, lumbar region, with neurogenic claudication: Attestations Medical Necessity Statement*: Defer to medical team Coding Level of Care Code Established Pt Acute Director Social Welfare for Shaniag Fwmartha Patient Type Established History Expanded Problem Focused Exam Expanded Problem Focused Medical Decision Making Moderate Complexity Diagnoses DDD (degenerative disc disease), lumbosacral M51.37 Spinal stenosis, lumbar region, with neurogenic claudication M48.062
[2022-05-15] MEDS: lidocaine 5% Patch 1 PATCH TOPICAL (08:10)
[2022-05-15] MEDS: cefTRIAXone 1,000 MG in sodium chloride 0.9% (plus) 50 ML 100 MG IV (08:11)
[2022-05-15 08:22] VITALS: BP 157/81; PULSE 93; RESP 18; TEMP 36.5
--- NOTE | 2022-05-15 10:23 | PC.CHAP ---
Pastoral Care Encounter/Spiritual Assessment Type of Contact [] Declined medication manager visit [] Patient/Family/Request visit [] Outpatient visit [] Follow-up visit [] Physician referral [] Code/Alert [x] Routine visit [] Staff referral [] Actively dying [] Patient sleeping [] Family support [] [] Out of room [] Palliative care [] [x] Receiving care in room [] Pre-surgical visit [] Trauma [] Long length of stay [] ICU visit [] Other: Relational/Emotional Strength [] Patient feels connected with others/family/visitors/staff [] Distress [] Loneliness/isolation [] Abandonment Spirituality of Patient [] Person of Rachel [] Attends Restoration of their Rachel [] Believes in Prayer [] Reads Bible or Anabaptist materials [] There are Spiritual issues to be addressed Continuous Dryout Operator Helper Interventions [] Prayer [] Active listening [] Non-anxious presence [] Spiritual/emotional support [] Crisis/trauma care [] Spiritual counseling [] Bereavement support [] Provided bereavement packet [] Provided Bible/devotional materials [] Provided toy/stuffed animal, coloring book to patient or family member [] Provided Communion [] Anointing/[place] [] Salvation [] Completed spiritual assessment [] Other: Impact on Illness or Injury [] Angry [] Fearful [] Anxious [] Often cries [] Exhaustion [] Unable to work [] Unable to attend quaker [] Unable to walk/stand [] Unable to read [] Unable to drive [] Unable to eat/drink [] Unable to sleep [] Unable to be with family [] Patient intubated [] Other: Summary Time spent with patient
[2022-05-15 11:29] VITALS: BP 105/57; PULSE 84; RESP 17; TEMP 36.7; O2SAT 90
--- NOTE | 2022-05-15 14:42 | P.DS_ITS ---
Discharge Providers Date of Admission: 05/14/22 05:30 Date of Discharge: May 15, 2022 Attending Provider at Admission: Job Covington Attending Provider at Discharge: Job Covington Primary Care Provider: Juve Meyers DO Diagnoses at Discharge Discharge Diagnosis (1) DDD (degenerative disc disease), lumbosacral: Status: Acute (2) Spinal stenosis, lumbar region, with neurogenic claudication: Status: Acute Reason for Visit Reason for Visit: Lower back pain Hospital Course Hospital Course Pleasant 71-year-old lady was admitted for assessment management due to progressively worsened back pain, associated also with difficulty with urination as well as having bowel movements, sensory loss in perianal area with numbness when wiping. Initially with concern for possible cauda equina, was assessed by orthopedics, underwent imaging with CT lumbar spine with the following impression: 1. Multiple bilateral pulmonary nodules partially visualized measuring up to 12 mm, dedicated chest CT advised for further evaluation as findings are concerning for metastatic disease. 2. L3-L4 broad-based disc bulge with mild spinal canal and moderate bilateral foraminal narrowing. 3. L4-L5 broad-based disc bulge with moderate spinal canal and moderate to severe bilateral foraminal narrowing. 4. L5/S1 broad-based disc bulge with moderate bilateral foraminal narrowing and mild spinal canal narrowing. 5. Left adrenal hypertrophy suspected. MRI, very limited study due to motion. Bones/joints: Unremarkable. Normal alignment. No acute fractures. Normal marrow signal. Moderate degenerative changes throughout with annular disc bulges and facet hypertrophy with ligamentum flavum thickening at L3-L4 and L4-L5 cause severe spinal canal narrowing. There is also a central disc protrusion at L5-S1 which causes mild spinal canal narrowing. Spinal cord: Visualized cord, conus medullaris and cauda equina are unremarkable without compression. The conus terminates at T12-L1. Soft tissues: Unremarkable. No cauda equina syndrome as per evaluation. On discussion with orthopedic surgery she is electing for continued conservative/nonsurgical options if possible. Continue with pain management while in the hospital with Tylenol, lidocaine patch, tramadol which seem to be working better than hydrocodone. Referral to pain clinic was offered for her, however, she declines. She has had recurrent difficulty with urinary retention, and Brody catheter had to be placed. She has been found to also have urinary tract infection for which she has been receiving ceftriaxone while in the hospital. Urine culture has been collected and in process, although appears so far more than 100,000 superficial danilo. She for now continues empirically on cefdinir to complete course. Intermittent self-catheterization was discussed with her, however, she declines stating she will not be able to perform this. As such Brody catheter is continued for now until she can be reassessed by primary provider and urology with consideration of voiding trial. She is asked to continue follow-up regarding spinal stenosis and follow-up also with orthopedics. Continue to optimize symptom control. She has so far done better, and ambulated 1-1/2 times around the unit. In addition we were notified and discussed with her of finding of adenocarcinoma on recent endometrial biopsy. She is referred for evaluation and staging with [facility]. Physical Exam Narrative: Sister supporting her at bedside. Const: COMMON NORMALS: patient oriented x3 and alert GENERAL APPEARANCE: cooperative and anxious NUTRITIONAL APPEARANCE: obese ORIENTATION/CONSCIOUSNESS: Yes awake OTHER: Tearful regarding future follow-up. HENMT: COMMON NORMALS: oropharynx normal Neck/C-Spine: COMMON NORMALS: no JVD Resp: COMMON NORMALS: normal respiratory effort and clear to auscultation bilaterally AUSCULTATION: clear to auscultation bilaterally Cardio: COMMON NORMALS: no JVD, regular rhythm, S1 normal heart sound present, S2 normal heart sound present and No murmurs present (Cardio) RHYTHM: regular rhythm HEART SOUNDS: S1 normal heart sound present and S2 normal heart sound present GI: COMMON NORMALS: Normal to inspection, nondistended, normoactive bowel sounds present, Soft to palpation and non-tender PALPATION: Yes Soft to palpation Back/Pelvis: OTHER: Antalgic positioning in bed. Extremity: COMMON NORMALS: no joint enlargement and no pedal edema Neuro: COMMON NORMALS: patient oriented x3 and moves all extremities SENSORIUM/ORIENTATION: Yes alert Skin: COMMON NORMALS: no rashes or lesions noted GENERAL SKIN EXAM: no rashes or lesions noted Urinary Catheter Management: Brody: Cath Placed During This Visit: yes Reason for Continuing Indwelling Catheter: Acute Urinary Retention or Obstruction Urinary Catheter Date of Insertion: 05/15/22 Urinary Catheter Time of Insertion: 05:15 Discharge Data Studies Completed and Pending Completed Studies During Hospitalization Category Date Time Status CT lumbar spine wo con* [id number] Stat Cat Scan 05/13/22 19:20 Completed MR lumbar spine wo/w con [id number] Stat MRI 05/13/22 22:47 Completed Pending at discharge Category Date Time Status Basic Metabolic Panel AM LABS Lab 05/16/22 04:00 Ordered Basic Metabolic Panel AM LABS Lab 05/17/22 04:00 Ordered Complete Blood Count w/Auto AM LABS Lab 05/16/22 04:00 Ordered Complete Blood Count w/Auto AM LABS Lab 05/17/22 04:00 Ordered Urine Culture Stat Lab 05/13/22 17:53 Results Radiology Impressions Lumbar Spine CT 05/13/22 19:20 IMPRESSION: 1. Multiple bilateral pulmonary nodules partially visualized measuring up to 12 mm, dedicated chest CT advised for further evaluation as findings are concerning for metastatic disease. 2. L3-L4 broad-based disc bulge with mild spinal canal and moderate bilateral foraminal narrowing. 3. L4-L5 broad-based disc bulge with moderate spinal canal and moderate to severe bilateral foraminal narrowing. 4. L5/S1 broad-based disc bulge with moderate bilateral foraminal narrowing and mild spinal canal narrowing. 5. Left adrenal hypertrophy suspected. Lumbar Spine MRI 05/13/22 22:47 IMPRESSION: Degenerative changes seen on an extremely limited exam. No focal mass. Laboratory Results WBC 13.7 10^3/uL (4.0-10.0) H 05/15/22 02:53 RBC 4.89 10^6/uL (4.1-5.3) 05/15/22 02:53 Hgb 13.6 g/dL (11.5-15.3) 05/15/22 02:53 Hct 42.5 % (37.0-47.0) 05/15/22 02:53 MCV 86.9 fl (81-99) 05/15/22 02:53 MCH 27.8 pg (28.0-34.0) L 05/15/22 02:53 MCHC 32.0 g/dL (30.0-36.0) 05/15/22 02:53 RDW 14.6 % (12.1-15.1) 05/15/22 02:53 Plt Count 423 10^3/cmm (130-400) H 05/15/22 02:53 MPV 9.6 fL (7.4-10.4) 05/15/22 02:53 Neut % (Auto) 82.2 % 05/15/22 02:53 Lymph % (Auto) 12.1 % 05/15/22 02:53 [place] % (Auto) 4.7 % 05/15/22 02:53 Eos % (Auto) 0.0 % 05/15/22 02:53 Baso % (Auto) 0.1 % 05/15/22 02:53 Neut # (Auto) 11.25 10^3/uL (1.8-7.7) H 05/15/22 02:53 Lymph # (Auto) 1.7 10^3/uL (0.8-4.8) 05/15/22 02:53 [place] # (Auto) 0.6 10^3/uL (0.2-0.9) 05/15/22 02:53 Eos # (Auto) 0.0 10^3/uL (0.0-0.8) 05/15/22 02:53 Baso # (Auto) 0.0 10^3/uL (0.0-0.1) 05/15/22 02:53 Nucleated RBC % (auto) 0 % 05/15/22 02:53 Nucleated RBCs # 0.0 /100WBC 05/15/22 02:53 Sodium 137 mmol/L (136-145) 05/15/22 02:53 Potassium 3.6 mmol/L (3.5-5.1) 05/15/22 02:53 Chloride 93 mmol/L (98-107) L 05/15/22 02:53 Carbon Dioxide 30 mmol/L (22-29) H 05/15/22 02:53 Anion Gap 17.6 (5-19) 05/15/22 02:53 BUN 22 mg/dL (8-23) 05/15/22 02:53 Creatinine 0.7 mg/dL (0.5-0.9) 05/15/22 02:53 GFR Calculation Not Reportable 05/15/22 02:53 Glucose 158 mg/dL (65-115) H 05/15/22 02:53 Calculated Osmolality 291 mOsm/kg (285-295) 05/15/22 02:53 Calcium 11.6 mg/dL (8.5-10.5) H 05/15/22 02:53 Magnesium 2.2 mg/dL (1.7-2.3) 05/15/22 02:53 Total Bilirubin 0.5 mg/dL (0.15-1.2) 05/14/22 04:29 AST 21 U/L (0-32) 05/14/22 04:29 ALT 11 U/L (0-33) 05/14/22 04:29 Alkaline Phosphatase 118 U/L (35-105) H 05/14/22 04:29 Total Protein 6.9 g/dL (6.6-8.7) 05/14/22 04:29 Albumin 3.3 g/dL (3.5-5.2) L 05/14/22 04:29 Globulin 3.6 g/dL (1.3-4.6) 05/14/22 04:29 Urine Color Yellow (Yellow) 05/13/22 17:53 Urine Appearance Cloudy (CLEAR) A 05/13/22 17:53 Urine pH 6 (5-7) 05/13/22 17:53 Ur Specific [place] 1.015 (1.005-1.030) 05/13/22 17:53 Urine Protein Trace (Negative) 05/13/22 17:53 Urine Glucose (UA) Norm (Normal) 05/13/22 17:53 Urine Ketones Negative (Negative) 05/13/22 17:53 Urine Blood 2+ (Negative) H 05/13/22 17:53 Urine Nitrate Negative (Negative) 05/13/22 17:53 Urine Bilirubin Neg (Negative) 05/13/22 17:53 Urine Urobilinogen 4 mg/dL (Negative) H 05/13/22 17:53 Ur Leukocyte Esterase 2+ (Negative) H 05/13/22 17:53 Urine RBC 0-4 /hpf (0-2) H 05/13/22 17:53 Urine WBC 40-55 /hpf (0-5) H 05/13/22 17:53 Ur Squamous Epith Cells 0-4 /hpf (0-5) H 05/13/22 17:53 Amorphous Sediment Not Reportable 05/13/22 17:53 Urine Bacteria 2+ /hpf (NONE) H 05/13/22 17:53 Vitals Last Vital Signs Temp 98.1 F 05/15/22 11:29 Pulse 84 05/15/22 11:29 Resp 17 05/15/22 11:29 BP 105/57 05/15/22 11:29 Pulse Ox 90 05/15/22 11:29 O2 Del Method 05/15/22 11:29 O2 Flow Rate 2 05/14/22 06:47 Discharge Plan Discharge Patient Disposition: Home Health Service Condition: Stable Prescriptions: New acetaminophen 325 mg Tablet 650 mg PO Q6H PRN (Reason: Mild/Mod Pain Or Temp >/= 101) Qty: 90 3RF tramadol 50 mg Tablet 50 mg PO Q6H PRN (Reason: pain) Qty: 28 0RF lidocaine 5 % Adhesive Patch,Medicated 1 patch topical [id number] Qty: 30 0RF Miralax 17 gram powder in packet 17 g PO DAILY Qty: 90 0RF cefdinir 300 mg capsule 300 mg PO BID 10 Days Qty: 20 0RF Continued acetaminophen [Tylenol Extra Strength] 500 mg tablet 1,000 mg PO Q4H PRN (Reason: Pain) [id number]-rugqthknthfne-ovfwfizg 250-250-65 mg tablet 1 tab PO Q6H PRN (Reason: pain) Qty: 30 0RF esomeprazole magnesium 20 mg capsule,delayed release(DR/EC) 20 mg PO QAM atorvastatin 20 mg tablet 20 mg PO BEDTIME meloxicam 7.5 mg tablet 7.5 mg PO DAILY PRN (Reason: Pain) levothyroxine 100 mcg tablet 100 mcg PO DAILY@21 divalproex 125 mg tablet,delayed release (DR/EC) 125 mg PO BID@07,17 Vitamin D3 25 mcg (1,000 unit) Tablet 25 mcg PO QAM Combivent Respimat 20-100 mcg/actuation mist 1 puff INHALATION QID PRN (Reason: Shortness Of Breath) Discontinued hydrocodone-acetaminophen 5-325 mg tablet 1 tab PO Q6H PRN (Reason: pain) 5 Days Qty: 20 0RF oxybutynin chloride 10 mg tablet extended release 24hr 10 mg PO QAM hydrochlorothiazide 25 mg tablet 25 mg PO QAM Discharge Orders: Discharge Order (Routine); Ordered 05/15/22 Ordered By: Job Covington Referrals: Gordon Butts DO [Physician] - 05/19/22 3:45 pm Sixto Burch MD [Physician] - 1 week (Urine retention Please call patient with appointment.) Lian Rodríguez M.D [Referring] - 4-7 days (New dx endometrial Ca Please call patient with appointment information.) Juve Meyers DO [Primary Care Provider] - 05/25/22 2:00 pm (Please keep previously scheduled appointment.) Discharge Diet: Cardiac Discharge Activity: Increase activity as tolerated and As per PT/OT instructions Patient Instructions: Cefdinir (By mouth), Brody Catheter Care, Urinary Tract Infection in Women (GEN), Endometrial Cancer (GEN), Lumbar Spinal Stenosis (GEN), Urinary Leg Bag (GEN), How to Change a Catheter Drainage Bag (GEN), Opioid Safety Activity Restrictions/Additional Instructions: Please follow-up with your primary doctor as well as urologist for reassessment of urinary retention and trial of removal of Brody catheter. Continue follow-up with orthopedic surgery and your primary doctor for continued optimization of pain control. Follow-up with [facility] for evaluation and staging of endometrial cancer and to discuss treatment. Discharge Attestations Time Spent in Discharge Care*: greater than 30 min Quality Metrics Clinical Quality Measures [ No reported AMI, CVA or VTE this stay] Coding Level of Care Code Acute [facility] note Exam Comprehensive Diagnoses DDD (degenerative disc disease), lumbosacral M51.37 Spinal stenosis, lumbar region, with neurogenic claudication M48.062
== END 2022-05-15 15:39 | disposition home health service (06) | DRG 552 ==
LOC: ER 05-14 04:52 → MEDSURG 05-14 11:47
PROVIDERS: Family Medicine; Internal Medicine; Admitting Provider Internal Medicine; Emergency Provider Emergency Medicine; PCP Internal Medicine; Visit Provider Internal Medicine
DX: M48.062 Spinal stenosis, lumbar region with neurogenic claudication (principal); N39.0 Urinary tract infection, site not specified; M51.37 Other intervertebral disc degeneration, lumbosacral region; R91.8 Other nonspecific abnormal finding of lung field; C54.1 Malignant neoplasm of endometrium; R33.9 Retention of urine, unspecified; F17.210 Nicotine dependence, cigarettes, uncomplicated; M51.36 Other intervertebral disc degeneration, lumbar region; M47.816 Spondylosis without myelopathy or radiculopathy, lumbar region; E03.9 Hypothyroidism, unspecified; K21.9 Gastro-esophageal reflux disease without esophagitis; E78.5 Hyperlipidemia, unspecified; Z79.82 Long term (current) use of aspirin
CPT/HCPCS: 36415; 51702; 51798; 72131; 72158; 80048; 80053; 81001; 83735; 85025; 87086; 96372; 97110; 97161; 97166; 99285; A9577; J0696; J1100; J1650; J3010

== ENCOUNTER → 2022-05-26 08:34 | Outpatient (BNVA) | payer MEDICARE, MEDICAID, SELFPAY | PROVIDERS: PCP Internal Medicine; Visit Provider Orthopaedic Surgery | DX: M48.062 Spinal stenosis, lumbar region with neurogenic claudication (principal) | CPT/HCPCS: 99214 ==

== ENCOUNTER 2022-06-08 16:10 | Emergency (ER) | payer MEDICARE, MEDICAID, SELFPAY ==
--- NOTE | 2022-06-08 16:12 | W.ED.FEMALGU ---
HPI - Female Genitourinary General: Chief complaint: Urogenital-Female Stated complaint: GIL REPLACEMENT Time Seen by Provider: 06/08/22 16:12 History of Present Illness: Ms. Ford is a 71-year-old lady with history of recent diagnosis of endometrial cancer and history of Gil catheter placement for acute urinary retention in the context of endometrial abnormality and urinary tract infection presenting to the emergency department due to need for Gil catheter replacement. She reports catheter was placed on the 14 of last month and has not been replaced. She has had difficulty with the tubing feeling like it is falling apart. She was supposed to have urology follow-up however unfortunately has not been able to due to transport issues. Patient does feel overwhelmed by recent diagnosis end is tearful. Apparently she is about to have some sort of an home services however is only seen that nurse once. Has generalized malaise and left abdominal and back pain. Intensity symptoms is mild to moderate. Course has persisted. No other specific changes in health, exacerbating, or alleviating factors identified. Onset (ago): day(s) Review of Systems General: Reports: 10 or more systems reviewed and unremarkable except in HPI and below PFSH ED PFSH: Medical History Arthritis COPD (chronic obstructive pulmonary disease) GERD (gastroesophageal reflux disease) Hyperlipidemia Hypertension Hypothyroid Surgical History History of appendectomy History of cholecystectomy History of tonsillectomy Social History Smoking and tobacco status: current every day smoker cigarettes Packs smoked per day: 1 Years cigarettes smoked: 55 Alcohol intake: never Female Reproductive History: Spontaneous abortions: No Physical Exam Const: COMMON NORMALS: alert GENERAL APPEARANCE: cooperative and well developed HENMT: COMMON NORMALS: normocephalic and atraumatic HEAD & SCALP: normocephalic and atraumatic Eye: COMMON NORMALS: conjunctivae normal CONJUNCTIVA: Yes conjunctivae normal SCLERA: sclerae normal Neck/C-Spine: COMMON NORMALS: supple GENERAL: Yes trachea midline Resp: COMMON NORMALS: clear to auscultation bilaterally EFFORT & INSPECTION: Yes able to speak in complete sentences AUSCULTATION: clear to auscultation bilaterally Cardio: COMMON NORMALS: regular rate and regular rhythm RATE: regular rate RHYTHM: regular rhythm GI: COMMON NORMALS: Soft to palpation PALPATION: Yes Soft to palpation, Yes Tenderness to palpation present (GI), No Guarding due to palpation present (GI) and No Rigid due to palpation Extremity: GENERAL: Yes normal exam except as noted and No edema Neuro: COMMON NORMALS: moves all extremities SENSORIUM/ORIENTATION: Yes alert and No Orientation impaired Psych: COMMON NORMALS: mental status grossly normal and Normal thought process present MOOD & AFFECT: Yes sad and Yes tearful THOUGHT PROCESS: Normal thought process present Course Vital Signs: Vital signs: Vital Signs Temperature 98.2 F 06/08/22 18:23 Pulse Rate 74 06/08/22 18:23 Respiratory Rate 18 06/08/22 18:23 Blood Pressure 118/80 06/08/22 18:23 Pulse Oximetry 96 06/08/22 18:23 Oxygen Delivery Me thod 06/08/22 18:23 MDM - Female Medical Decision Making 71-year-old lady with reported recent diagnosis of endometrial cancer presenting for Gil catheter concern. Patient does report difficulty handling recent diagnosis and concerns regarding degree of care she will require, case management will be messaged. Urinalysis will be sent for culture Gil catheter replaced. The results of ED evaluation were given to the patient including prescriptions and/or symptomatic cares (if applicable) including appropriate and responsible use, followup plan, and return precautions. The patient verbalized understanding and felt safe for discharge. Medical Records I reviewed the patient's medical records. Lab Data I reviewed the patient's lab results. Laboratory Results Urine Color Dark yellow (Yellow) 06/08/22 17:55 Urine Appearance Cloudy (CLEAR) A 06/08/22 17:55 Urine pH 5 (5-7) 06/08/22 17:55 Ur Specific [place] 1.025 (1.005-1.030) 06/08/22 17:55 Urine Protein 1+ (Negative) H 06/08/22 17:55 Urine Glucose (UA) Norm (Normal) 06/08/22 17:55 Urine Ketones 1+ (Negative) H 06/08/22 17:55 Urine Blood 3+ (Negative) H 06/08/22 17:55 Urine Nitrate Positive (Negative) H 06/08/22 17:55 Urine Bilirubin 1+ (Negative) H 06/08/22 17:55 Urine Urobilinogen 1 mg/dL (Negative) H 06/08/22 17:55 Ur Leukocyte Esterase 2+ (Negative) H 06/08/22 17:55 Urine RBC 10-15 /hpf (0-2) H 06/08/22 17:55 Urine WBC Too numerous to cnt /hpf (0-5) H 06/08/22 17:55 Ur Squamous Epith Cells Rare /hpf (0-5) 11 17:55 Calcium Oxalate Crystal 0-4 /hpf H 06/08/22 17:55 Amorphous Sediment Not Reportable 06/08/22 17:55 Urine Bacteria 2+ /hpf (NONE) H 06/08/22 17:55 Discharge Plan Discharge Patient Disposition: Home Clinical Impression: Encounter for Gil catheter replacement Condition: Stable Prescriptions: No Action acetaminophen [Tylenol Extra Strength] 500 mg tablet 1,000 mg PO Q4H PRN (Reason: Pain) hfauvbf-tjtyhguvsmnve-cungnczx 250-250-65 mg tablet 1 tab PO Q6H PRN (Reason: pain) Qty: 30 0RF tramadol 50 mg tablet 50 mg PO Q6H PRN (Reason: pain) Qty: 28 0RF esomeprazole magnesium 20 mg capsule,delayed release(DR/EC) 20 mg PO QAM atorvastatin 20 mg tablet 20 mg PO BEDTIME meloxicam 7.5 mg tablet 7.5 mg PO DAILY PRN (Reason: Pain) levothyroxine 100 mcg tablet 100 mcg PO DAILY@21 divalproex 125 mg tablet,delayed release (DR/EC) 125 mg PO BID@07,17 Vitamin D3 25 mcg (1,000 unit) Tablet 25 mcg PO QAM Combivent Respimat 20-100 mcg/actuation mist 1 puff INHALATION QID PRN (Reason: Shortness Of Breath) acetaminophen 325 mg Tablet 650 mg PO Q6H PRN (Reason: Mild/Mod Pain Or Temp >/= 101) Qty: 90 3RF lidocaine 5 % Adhesive Patch,Medicated 1 patch topical [id number] Qty: 30 0RF Miralax 17 gram powder in packet 17 g PO DAILY Qty: 90 0RF Discharge Orders: Discharge ED (Routine); Ordered 06/08/22 Ordered By: See Monsalve Referrals: Meyers,Juve Jaxson, DO [Primary Care Provider] - Discharge Diet: Usual diet Discharge Activity: Increase activity as tolerated Patient Instructions: Gil Catheter Placement and Care (ED), How to Change a Catheter Drainage Bag (DC) Activity Restrictions/Additional Instructions: Thank you for visiting the emergency department. You were seen evaluated for problem with Gil catheter. This was replaced successfully. Your urine will be sent for culture and you will be called if you need antibiotics. I will message case management regarding concerns about your current home services. Please follow-up with your primary care provider. Return to the emergency department for anything that you are concerned about a feel needs emergency department evaluation. Coding Level of Care Code ED Filter Machine Operator for Raymundo Moya
[2022-06-08 16:14] VITALS: BP 118/80; PULSE 74; RESP 18; TEMP 36.8; O2SAT 96
[2022-06-08 18:11] LABS: Urine Color Dark Yellow (Yellow)
[2022-06-08 18:12] LABS: Add Urine Microscopic? YES; Bilirubin Urine 1+ (Negative); Blood Urine 3+ (Negative); Glucose Urine UA Norm (Normal); Ketones Urine 1+ (Negative); Leukocyte Esterase Urine 2+ (Negative); Nitrate Urine Positive (Negative); Protein Urine 1+ (Negative); Specific Gravity, Urine 1.025 (1.005-1.030); Urine Appearance Cloudy (CLEAR); Urobilinogen Urine 1 mg/dL (Negative); pH Urine 5 (5-7)
[2022-06-08 18:14] LABS: Bacteria Urine 2+ /hpf; Squamous Epithelial Cell Urine RARE /hpf (0-5); WBC Urine TOO NUMEROUS TO CNT /hpf (0-5)
[2022-06-08 18:15] LABS: Add Urine Culture? Yes; Calcium Oxalate Crystals Urine 0-4 /hpf
[2022-06-08 18:23] VITALS: BP 118/80; PULSE 74; RESP 18; TEMP 36.8; O2SAT 96
[2022-06-08] MEDS: ketorolac 30 mg/mL INJ 15 MG IM (18:30)
--- NOTE | 2022-06-09 09:31 | DCPLANNER ---
Addendum entered by Brionna Sheehan 06/22/22 15:43: Clinic was unable to reach patient. Original Note: child nutrition manager had message to schedule a follow up appointment for patient with urology. child nutrition manager sent patients information to the front office staff at urology. Patients information will be printed and reviewed. Clinic will call patient with appointment information.
--- NOTE | 2022-06-09 09:33 | DCPLANNER ---
Addendum entered by Brionna Sheehan 06/22/22 15:39: Patient had a follow up appointment scheduled for 06.16.[address] Sullivan at [facility] - patient did attend appointment. Original Note: plant senior manager had message to speak with patient about half-way placement. plant senior manager spoke with patient, she stated that she would like to have some in home or home health services. Patient stated that she cannot get into see her primary care physician and would like to have a different primary care physician. plant senior manager called [facility], spoke with Brenda, gave clinic patients information, a follow up appointment was scheduled for Thursday, June 16, 2022 at 10:[address] Davis. plant senior manager gave patient the appointment information.
== END 2022-06-08 20:00 | disposition home or self-care (01) ==
PROVIDERS: Emergency Provider Emergency Medicine; PCP Internal Medicine
DX: Z46.6 Encounter for fitting and adjustment of urinary device (principal); J44.9 Chronic obstructive pulmonary disease, unspecified; E78.5 Hyperlipidemia, unspecified; I10 Essential (primary) hypertension; F17.210 Nicotine dependence, cigarettes, uncomplicated
CPT/HCPCS: 51702; 81001; 87077; 87086; 87186; 96372; 99284; J1885

== ENCOUNTER 2022-06-27 10:34 | Emergency (ER) | payer MEDICARE, MEDICAID, SELFPAY ==
[2022-06-27 10:37] VITALS: BP 142/97; PULSE 80; RESP 22; TEMP 37.9; O2SAT 95; BMI 38.2
[2022-06-27 10:45] VITALS: BP 142/97; O2SAT 92
--- NOTE | 2022-06-27 10:58 | ED_ITS ---
HPI - Female Genitourinary General: Chief complaint: Urogenital-Female Stated complaint: PELVIC PAIN Time Seen by Provider: 06/27/22 10:51 Source: patient Mode of arrival: EMS History of Present Illness: 31-year-old female presents emergency room with complaints of pelvic pain. She has an indwelling Brody due to urinary retentio n. She has a history of endometrial CA. She is just beginning treatment for that. She was concerned today that she had a bladder infection she been told her primary care to go to the emergency room should any difficulty with the Brody. She has not noticed any hematuria she has not had any fever. No cough or shortness of breath. MD elicited complaint: pelvic pain Onset (ago): hour(s) Location of symptoms: suprapubic Severity: moderate Quality of pain: cramping Consistency: constant Vaginal discharge: none Vaginal bleeding: none Urinary symptoms: Difficulty Urinating Exacerbating factors: none Relieving factors: none Associated symptoms: Deny abdominal pain or nausea Treatment prior to arrival: none Review of Systems Const: Denies: fever(s), chills, body aches, change in appetite, fatigue or malaise ENMT: Denies: throat pain, ear or mastoid pain, nasal discharge or nasal congestion Card: Denies: chest pain, palpitations, edema or orthopnea Resp: Denies: dyspnea, productive cough or non-productive cough GI: Denies: abdominal pain, nausea, vomiting, hematemesis, coffee ground emesis, diarrhea, constipation, bloating, hematochezia or melena : Denies: flank pain, difficulty voiding, dysuria, urinary frequency or urinary urgency Skin/Breast: Denies: rash or pruritus PFSH ED PFSH: Medical History Arthritis COPD (chronic obstructive pulmonary disease) GERD (gastroesophageal reflux disease) Hyperlipidemia Hypertension Hypothyroid Surgical History History of appendectomy History of cholecystectomy History of tonsillectomy Social History Smoking and tobacco status: former smoker Quit status (tobacco): has quit using tobacco Year quit tobacco: 06/14/22 Alcohol intake: never Desire information about alcohol rehabilitation?: No Desire information about substance/drug rehabilitation?: No Lives independently: Yes Current occupational status: disabled Female Reproductive History: Spontaneous abortions: No Physical Exam Const: GENERAL APPEARANCE: cooperative and comfortable ORIENTATION/CONSC IOUSNESS: Yes awake, Yes oriented to person, Yes oriented to place and Yes oriented to time HENMT: COMMON NORMALS: normocephalic, atraumatic and hearing grossly normal bilaterally HEAD & SCALP: normocephalic and atraumatic Resp: COMMON NORMALS: normal respiratory effort, No retractions, No use of accessory muscles and clear to auscultation bilaterally AUSCULTATION: clear to auscultation bilaterally Cardio: COMMON NORMALS: regular rate, regular rhythm and No murmurs present (Cardio) RATE: regular rate RHYTHM: regular rhythm GI: COMMON NORMALS: Soft to palpation and No hepatosplenomegaly present AUSCULTATION: Yes normoactive bowel sounds PALPATION: Yes Soft to palpation, No Tenderness to palpation present (GI), No Guarding due to palpation present (GI) and Yes No hepatosplenomegaly present Extremity: COMMON NORMALS: normal to inspection, capillary refill normal, no clubbing, cyanosis or edema, no calf tenderness and no pedal edema Neuro: SENSORIUM/ORIENTATION: Yes oriented to person, Yes oriented to place and Yes oriented to time Skin: COMMON NORMALS: no rashes or lesions noted GENERAL SKIN EXAM: no rashes or lesions noted Course Vital Signs: Vital signs: Vital Signs Temperature 100.2 F H 06/27/22 12:46 Pulse Rate 80 06/27/22 12:46 Respiratory Rate 22 H 06/27/22 12:46 Blood Pressure 142/97 06/27/22 12:46 Pulse Oximetry 92 06/27/22 12:46 Oxygen Delivery Me thod 06/27/22 12:46 MDM - Female Medical Decision Making Labs and imaging reviewed patient has a cystitis mild elevation of white count. Started on antibiotics given dose of Rocephin here at this point I do not believe she requires hospitalization. If she has any worsening or change symptoms return to emergency room. Medical Records I reviewed the patient's medical records. Lab Data I reviewed the patient's lab results. 06/27/22 10:40 06/27/22 10:40 Radiology Impressions Renal Ultrasound 06/27/22 12:56 IMPRESSION: 1. Bilateral renal cyst 2. Otherwise negative examination of the kidneys Laboratory Results WBC 12.5 10^3/uL (4.0-10.0) H 06/27/22 10:40 RBC 4.72 10^6/uL (4.1-5.3) 06/27/22 10:40 Hgb 13.2 g/dL (11.5-15.3) 06/27/22 10:40 Hct 41.5 % (37.0-47.0) 06/27/22 10:40 MCV 87.9 fl (81-99) 06/27/22 10:40 MCH 28.0 pg (28.0-34.0) 06/27/22 10:40 MCHC 31.8 g/dL (30.0-36.0) 06/27/22 10:40 RDW 15.2 % (12.1-15.1) H 06/27/22 10:40 Plt Count 300 10^3/cmm (130-400) 06/27/22 10:40 MPV 9.9 fL (7.4-10.4) 06/27/22 10:40 Neut % (Auto) 69.3 % 06/27/22 10:40 Lymph % (Auto) 20.2 % 06/27/22 10:40 [place] % (Auto) 7.3 % 06/27/22 10:40 Eos % (Auto) 2.1 % 06/27/22 10:40 Baso % (Auto) 0.5 % 06/27/22 10:40 Neut # (Auto) 8.71 10^3/uL (1.8-7.7) H 06/27/22 10:40 Lymph # (Auto) 2.5 10^3/uL (0.8-4.8) 06/27/22 10:40 [place] # (Auto) 0.9 10^3/uL (0.2-0.9) 06/27/22 10:40 Eos # (Auto) 0.3 10^3/uL (0.0-0.8) 06/27/22 10:40 Baso # (Auto) 0.1 10^3/uL (0.0-0.1) 06/27/22 10:40 Nucleated RBC % (auto) 0 % 06/27/22 10:40 Nucleated RBCs # 0.0 /100WBC 06/27/22 10:40 Sodium 140 mmol/L (136-145) 06/27/22 10:40 Potassium 4.1 mmol/L (3.5-5.1) 06/27/22 10:40 Chloride 102 mmol/L (98-107) 06/27/22 10:40 Carbon Dioxide 27 mmol/L (22-29) 06/27/22 10:40 Anion Gap 15.1 (5-19) 06/27/22 10:40 BUN 11 mg/dL (8-23) 06/27/22 10:40 Creatinine 0.7 mg/dL (0.5-0.9) 06/27/22 10:40 GFR Calculation Not Reportable 06/27/22 10:40 Glucose 98 mg/dL (65-115) 06/27/22 10:40 Calculated Osmolality 289 mOsm/kg (285-295) 06/27/22 10:40 Calcium 11.2 mg/dL (8.5-10.5) H 06/27/22 10:40 Total Bilirubin 0.3 mg/dL (0.15-1.2) 06/27/22 10:40 AST 24 U/L (0-32) 06/27/22 10:40 ALT 8 U/L (0-33) 06/27/22 10:40 Alkaline Phosphatase 167 U/L (35-105) H 06/27/22 10:40 Total Protein 6.9 g/dL (6.6-8.7) 06/27/22 10:40 Albumin 3.4 g/dL (3.5-5.2) L 06/27/22 10:40 Globulin 3.5 g/dL (1.3-4.6) 06/27/22 10:40 Urine Color Yellow (Yellow) 06/27/22 10:40 Urine Appearance Clear (CLEAR) 06/27/22 10:40 Urine pH 5 (5-7) 06/27/22 10:40 Ur Specific [place] 1.020 (1.005-1.030) 06/27/22 10:40 Urine Protein 2+ (Negative) H 06/27/22 10:40 Urine Glucose (UA) Norm (Normal) 06/27/22 10:40 Urine Ketones Negative (Negative) 06/27/22 10:40 Urine Blood 3+ (Negative) H 06/27/22 10:40 Urine Nitrate Positive (Negative) H 06/27/22 10:40 Urine Bilirubin Neg (Negative) 06/27/22 10:40 Urine Urobilinogen 1 mg/dL (Negative) H 06/27/22 10:40 Ur Leukocyte Esterase 2+ (Negative) H 06/27/22 10:40 Urine RBC 15-25 /hpf (0-2) H 06/27/22 10:40 Urine WBC 15-25 /hpf (0-5) H 06/27/22 10:40 Ur Squamous Epith Cells None /hpf (0-5) 06/27/22 10:40 Amorphous Sediment Not Reportable 06/27/22 10:40 Urine Bacteria 1+ /hpf (NONE) H 06/27/22 10:40 Discharge Plan Discharge Patient Disposition: Home Clinical Impression: Cystitis Condition: Stable Prescriptions: New Macrobid 100 mg capsule 100 mg PO BID 10 Days Qty: 20 0RF Rx Instructions: must administer with a meal/food No Action acetaminophen [Tylenol Extra Strength] 500 mg tablet 1,000 mg PO Q4H PRN (Reason: Pain) aspirin 81 mg tablet,chewable 81 mg PO DAILY (DME) rollaid with seat See Rx Instructions .Route .MEDSUPPLY Qty: 1 0RF Rx Instructions: As directed tramadol 50 mg tablet 50 mg PO Q6H PRN (Reason: pain) Qty: 60 0RF (DME) shower chair See Rx Instructions .Route .MEDSUPPLY Qty: 1 0RF Rx Instructions: As directed esomeprazole magnesium 20 mg capsule,delayed release(DR/EC) 20 mg PO QAM atorvastatin 20 mg tablet 20 mg PO BEDTIME meloxicam 7.5 mg tablet 7.5 mg PO DAILY PRN (Reason: Pain) levothyroxine 100 mcg tablet 100 mcg PO DAILY@21 divalproex 125 mg tablet,delayed release (DR/EC) 125 mg PO BID@07,17 Vitamin D3 25 mcg (1,000 unit) Tablet 25 mcg PO QAM Combivent Respimat 20-100 mcg/actuation mist 1 puff INHALATION QID PRN (Reason: Shortness Of Breath) Discharge Orders: Discharge ED (Routine); Ordered 06/27/22 Ordered By: Tee Walker Discharge Diet: Usual diet Discharge Activity: Increase activity as tolerated Patient Instructions: Opioid Safety, Pain Management Activity Restrictions/Additional Instructions: You were seen today for pelvic discomfort you have a acute cystitis there is no sign of infection extending into the kidneys. You you were given the first dose of antibiotics in the emergency room will be discharged home with oral antibiotics 1 pill twice a day for 10 days. We will contact you with culture results when they become available. Recommend you follow-up with your onco logist or primary care doctor within the week. Coding Level of Care Code ED [employer] Exam Detailed
[2022-06-27 11:07] LABS: Basophils # 0.1 10^3/uL (0.0-0.1); Basophils % 0.5 %; Eosinophils # 0.3 10^3/uL (0.0-0.8); Eosinophils % 2.1 %; Hematocrit 41.5 % (37.0-47.0); Hemoglobin 13.2 g/dL (11.5-15.3); Lymphocytes # 2.5 10^3/uL (0.8-4.8); Lymphocytes % 20.2 %; Mean Corpuscular HGB Conc 31.8 g/dL (30.0-36.0); Mean Corpuscular Volume 87.9 fl (81-99); Mean Platelet Volume 9.9 fL (7.4-10.4); Monocytes # 0.9 10^3/uL (0.2-0.9); Monocytes % 7.3 %; Neutrophils # 8.71 10^3/uL (1.8-7.7); Neutrophils % 69.3 %; Nucleated Red Blood Cells % 0 %; Platelet Count 300 10^3/cmm (130-400); Red Blood Count 4.72 10^6/uL (4.1-5.3); Red Cell Distribution Width 15.2 % (12.1-15.1); White Blood Count 12.5 10^3/uL (4.0-10.0)
[2022-06-27 11:10] LABS: Add Urine Microscopic? YES; Bilirubin Urine Neg (Negative); Blood Urine 3+ (Negative); Glucose Urine UA Norm (Normal); Ketones Urine Negative (Negative); Leukocyte Esterase Urine 2+ (Negative); Nitrate Urine Positive (Negative); Protein Urine 2+ (Negative); Urine Appearance Clear (CLEAR); Urine Color Yellow (Yellow); Urobilinogen Urine 1 mg/dL (Negative); pH Urine 5 (5-7)
[2022-06-27 11:11] LABS: Add Urine Culture? Yes; Bacteria Urine 1+ /hpf; RBC Urine 15-25 /hpf (0-2); WBC Urine 15-25 /hpf (0-5)
[2022-06-27 12:17] LABS: Alanine Aminotransferase 8 U/L (0-33); Albumin Level 3.4 g/dL (3.5-5.2); Alkaline Phosphatase 167 U/L (35-105); Anion Gap 15.1 (5-19); Aspartate Amino Transferase 24 U/L (0-32); Blood Urea Nitrogen 11 mg/dL (8-23); Calcium 11.2 mg/dL (8.5-10.5); Carbon Dioxide 27 mmol/L (22-29); Chloride 102 mmol/L (98-107); Globulin 3.5 g/dL (1.3-4.6); Glucose 98 mg/dL (65-115); Osmolality Calculated 289 mOsm/kg (285-295); Potassium 4.1 mmol/L (3.5-5.1); Sodium 140 mmol/L (136-145); Total Bilirubin 0.3 mg/dL (0.15-1.2); Total Protein 6.9 g/dL (6.6-8.7)
[2022-06-27 12:46] VITALS: BP 142/97; PULSE 80; RESP 22; TEMP 37.9; O2SAT 92
--- NOTE | 2022-06-27 12:56 | USR_ITS ---
PROCEDURE INFORMATION: Exam: US Retroperitoneal; Complete; Kidneys and Bladder Exam date and time: 06/27/2022 2:30 PM Age: 71 years old Clinical indication: Condition or disease; Other: Cystitis; Patient HX: Patient states she has endometrial cancer TECHNIQUE: Imaging protocol: Real-time ultrasound of the retroperitoneum with image documentation. Complete exam focused on the kidneys and bladder. COMPARISON: US transvaginal [id number] 04/21/2022 2:20 PM FINDINGS: Right kidney: Upper pole complex cyst 6.5 mm x 8.4 mm x 9.2 mm No stones. No hydronephrosis. Right kidney measures 9.3 cm x 4.5 cm x 5 cm Left kidney: A benign cyst 8.2 mm x 6.2 mm x 7 mm No stones. No hydronephrosis. The left kidney measures 10.3 cm x 5 cm x 5.7 cm there are no focal abnormalities Urinary bladder: Unremarkable. US/US renal BI* [id number] IMPRESSION: 1. Bilateral renal cyst 2. Otherwise negative examination of the kidneys
[2022-06-27] MEDS: cefTRIAXone 1,000 mg SDV 1000 MG IM (13:08)
[2022-06-27] MEDS: sodium chloride 0.9% 50 ML IV (13:09)
== END 2022-06-27 16:50 | disposition home or self-care (01) ==
PROVIDERS: Physician Assistant; Emergency Provider Family Medicine
DX: N30.90 Cystitis, unspecified without hematuria (principal)
CPT/HCPCS: 36415; 76770; 80053; 81001; 85025; 87040; 87077; 87086; 87186; 99285; J0696

== ENCOUNTER 2022-07-19 16:20 | Emergency (ER) | payer MEDICARE, MEDICAID, SELFPAY ==
--- NOTE | 2022-07-19 16:20 | ED_ITS ---
HPI - Altered Mental Status General: Chief Complaint: Altered Mental Status Stated Complaint: AMS Time Seen by Provider: 07/19/22 16:20 Limitations: altered mental status History of Present Illness: 71-year-old lady with, per chart review abnormal neurologic findings, thyroid disorder, hypertension, debility, recent diagnosis of cancer, indwelling Brody catheter presenting to the emergency department with altered mental status. Per EMS report the patient had unclear last known normal and was recently treated for a urinary tract infection. She talked to them somewhat however was hypoxemic and confused. Upon arrival patient quickly deteriorated and was unresponsive. Review of Systems General: Reports: ROS unobtainable due to medical condition and ROS unobtainable due to mental status PFSH ED PFSH: Medical History Arthritis COPD (chronic obstructive pulmonary disease) GERD (gastroesophageal reflux disease) Hyperlipidemia Hypertension Hypothyroid Surgical History History of appendectomy History of cholecystectomy History of tonsillectomy Social History Smoking and tobacco status: former smoker Quit status (tobacco): has quit using tobacco Year quit tobacco: 06/14/22 Alcohol intake: never Desire information about alcohol rehabilitation?: No Desire information about substance/drug rehabilitation?: No Lives independently: Yes Current occupational status: disabled Female Reproductive History: Spontaneous abortions: No Physical Exam Const: GENERAL APPEARANCE: ill appearing ORIENTATION/CONSCIOUSNESS: Yes patient obtunded HENMT: COMMON NORMALS: normocephalic and atraumatic HEAD & SCALP: normocephalic and atraumatic OTHER: Brown liquid secretions in oropharynx, suctioned Eye: COMMON NORMALS: conjunctivae normal CONJUNCTIVA: Yes conjunctivae normal SCLERA: sclerae normal Neck/C-Spine: COMMON NORMALS: supple GENERAL: Yes trachea midline Resp: EFFORT & INSPECTION: Yes respiratory distress OTHER: Abnormal respiratory pattern Cardio: COMMON NORMALS: regular rhythm RATE: tachycardic RHYTHM: regular rhythm PERIPHERAL PULSES: other (Absent) GI: COMMON NORMALS: Soft to palpation PALPATION: Yes Soft to palpation and No Tenderness to palpation present (GI) Extremity: GENERAL: Yes normal exam except as noted and Yes edema Neuro: SENSORIUM/ORIENTATION: Yes obtunded Procedures Central Line Placement Right IJ: Time Out Performed: No (Performed under emergent conditions with patient unable to give consent and) Patient Placed on Monitor/Pulse Ox: Yes MD Prep: mask, gown and gloves Central Line Prep: Povidone-Iodine 1% and sterile drapes applied Ultrasound Used for Placement: Yes Central Line Lumen Inserted: triple Post Procedure: sutured in place, good blood return, all ports aspirated, flushed, capped and sterile dressing applied Post Procedure X-Ray: tip of catheter in good position and no pneumothorax seen Patient Tolerated Procedure: well Intubation Time out performed: No (Performed under emergent conditions with patient unable to give consent and) sedative: Etomidate Mg Given: 30 paralytic: Vecuronium Mg Given: 10 Laryngoscope: fiber optic video scope ET Tube Size: 8 ET Tube Uncuffed: No Tube Secured Depth (cm): 21 Tube Secured Location: teeth Tube Placement Confirmation: visualized tube passing through cords, equal breath sounds bilaterally and no breath sounds over epigastrium Patient Tolerated Procedure: no complications Intubation Complications: none Additional Comments: Performed during cardiac arrest Course Vital Signs: Vital signs: Vital Signs Pulse Rate 112 H 07/19/22 16:23 Respiratory Rate 22 H 07/19/22 18:58 Blood Pressure 98/70 07/19/22 16:23 Pulse Oximetry 100 07/19/22 17:22 Fraction of Inspir ed Oxygen 100 07/19/22 18:58 MDM - Altered Mental Status Medical Decision Making 71-year-old lady with somewhat unclear recent history presenting to the emergency department due to altered mental status. Per EMS report patient initially mildly communicative however shortly after arrival upon assessment patient appears obtunded with some response to deep painful stimuli with abnormal respiratory effort and hypotension. IV access obtained and fluid bolus ordered. Due to significant hypotension push dose epinephrine administered while awaiting levophed without significant change in condition. Patient developed bradycardia and central pulses were no longer palpable. CPR was initiated. Rhythm initially PEA. Patient intubated. See nursing flowsheet for code documentation and medications. No shockable rhythms identified and most likely etiology given history and POCUS is severe hypotension as cardiac activity was organized. ROSC was achieved. Patient continued to trend to hypotension and norepinephrine drip administered as well as analgesia/sedation. Blood pressure augmented with push dose epi as needed as well. EKG with no STEMI. Chest x-ray reviewed at bedside demonstrating satisfactory adjustment of ET tube which was initially right at the level of the sherry and right mainstem. Subsequently right-sided internal jugular central venous access obtained and chest x-ray confirmed satisfactory location. Initial ABG demonstrated marked acidemia with some hypercapnia though likely metabolic acidosis driving force behind acidemia. Initial labs hemolyzed however on redraw labs notable for marked leukocytosis, normal hemoglobin, mild thrombocytosis. Metabolic panel with evidence of GUERO and hyponatremia/hypochloremia as well as decreased bicarb and increased anion gap. Lactic acid is markedly elevated. Transaminitis likely secondary to shock liver. Initial troponin elevated at 81 ng/L. CT head demonstrated small hyperdense left frontal white matter foci with likely edema of uncertain etiology possible metastatic disease. Chest abdomen pelvis CT demonstrates likely pneumonia as well as inadequate drainage of Brody yandel ter. By the time patient had returned from CT scan (after I had spoke with the patient's sister on the telephone) the family had arrived at bedside. I had extensive discussion with the patient's sister regarding the patient's current state. The patient's sister is understandably distraught however quite realistic and understanding of the situation. She last spoke to the patient 2 days ago and patient was in good spirits, patient does not ambulate recently due to severe neurogenic claudication/back pain. The patient additionally has been recently diagnosed with uterine cancer. I did discuss the CT findings of likely metastatic disease. At time of continued discussion with family the patient was on high dose norepi and epinephrine drip and still mildly hypotensive. I discussed likely prognosis and offered options regarding continued care. The patient's sister and the patient had discussed previously and the patient has become more aware recently of her declining health and voiced that she would no longer want to be on life support even for short periods of time. At that time we proceeded to honor the patient and her family's wishes and transition to comfort measures only. The patient was palliatively extubated and vasopressors were discontinued. Ms Ford approximately 10 minutes later. She appeared comfortable. I expressed my condolences to the family at bedside. I believe that the family's decision was best for the patient given comorbidities and clinical findings including that the patient never made any purposeful movements during ED care. Further life support would have simply prolonged suffering with essentially no chance of meaningful recovery to a level that the patient would have wished for. Time of 1949. Medical Records I reviewed the patient's medical records. Lab Data I reviewed the patient's lab results. 07/19/22 17:00 07/19/22 17:[address] 07/19/22 16:53 IMPRESSION: 1. Small hyperdense left frontal white matter foci with surrounding white matter edema. See discussion above. No other acute intracranial hemorrhage or significant midline shift. Follow-up exam with contrast-enhanced MRI should be considered if there is no contraindication. 2. Other nonacute brain findings as above. 3. Sinus findings as above. ADDENDUM: 07/19/221908 Addendum Dr. Monsalve was notified by phone 8:08 p.m. Eastern time. Chest X-Ray 07/19/22 17:29 IMPRESSION: 1. Tubes and lines in satisfactory position. 2. Questionable vascular congestion both lung pringle. Chest/Abdomen/Pelvis CT 07/19/22 18:33 IMPRESSION: 1. There is an endotracheal tube present, with distal tip 3.0 cm above the sherry. 2. There is an enteric tube present with distal tip in the stomach. 3. There are multiple noncalcified pulmonary nodules throughout both lungs, measuring up to 8 mm. This is concerning for metastatic nodules. Fleischner Society follow up recommendations for incidental nodules are not indicated. Follow up per the patient's medical condition. 4. Mediastinal and bilateral hilar adenopathy noted. Mediastinal nodes measure up to 20 mm short axis. There is a 32 mm subcarinal lymph node present. This is concerning for metastatic adenopathy. 5. Bilateral airspace infiltrates noted in the lower lobes and in the posterior right upper lobe, suspicious for pneumonia. 6. Mild T8 compression fracture of undetermined age. IMPRESSION: 1. Osteolytic lesion of the L3 vertebral body. 6 cm lytic, expansile lesion of the mid/distal sacrum. Lytic lesions in the bilateral pubic rami. 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 2. Urinary bladder is distended, measuring 15 x 11 x 9 cm. There is a Brody catheter seen with the retention balloon near the expected location of the urethra. Repositioning of this catheter is represented to allow for drainage of the urinary bladder. 3. Mild bilateral hydroureteronephrosis. No obstructing calculi. This is likely secondary to over distention of the urinary bladder. 4. No primary neoplastic lesion identified. Laboratory Results WBC 45.6 10^3/uL (4.0-10.0) H* 07/19/22 18:00 Corrected WBC Cancelled 07/19/22 17:00 RBC 5.41 10^6/uL (4.1-5.3) H 07/19/22 18:00 Hgb 15.1 g/dL (11.5-15.3) 07/19/22 18:00 Hct 51.0 % (37.0-47.0) H 07/19/22 18:00 MCV 94.3 fl (81-99) 07/19/22 18:00 MCH 27.9 pg (28.0-34.0) L 07/19/22 18:00 MCHC 29.6 g/dL (30.0-36.0) L 07/19/22 18:00 RDW 15.1 % (12.1-15.1) 07/19/22 18:00 Plt Count 465 10^3/cmm (130-400) H 07/19/22 18:00 MPV 10.1 fL (7.4-10.4) 07/19/22 18:00 Gran % Cancelled 07/19/22 17:00 Neut % (Auto) 82.3 % 07/19/22 18:00 Lymph % (Auto) 13.6 % 07/19/22 18:00 [place] % (Auto) 2.8 % 07/19/22 18:00 Eos % (Auto) 0.6 % 07/19/22 18:00 Baso % (Auto) 0.7 % 07/19/22 18:00 Neut # (Auto) 34.75 10^3/uL (1.8-7.7) H 07/19/22 18:00 Lymph # (Auto) 6.2 10^3/uL (0.8-4.8) H 07/19/22 18:00 [place] # (Auto) 1.3 10^3/uL (0.2-0.9) H 07/19/22 18:00 Eos # (Auto) 0.3 10^3/uL (0.0-0.8) 07/19/22 18:00 Baso # (Auto) 0.3 10^3/uL (0.0-0.1) H 07/19/22 18:00 Absolute Gran (auto) Cancelled 07/19/22 17:00 Nucleated RBC % (auto) 0.2 % 07/19/22 18:00 Nucleated RBCs # 0.1 /100WBC 07/19/22 18:00 PT 23.30 SECONDS (12.1-14.9) H 07/19/22 18:00 INR 2.04 (0.8-1.2) H 07/19/22 18:00 APTT 50.2 SECONDS (23.9-36.7) H 07/19/22 18:00 Specimen Type Arterial 07/19/22 17:58 Sample Site Radial, left 07/19/22 17:58 ABG pH 6.96 (7.35-7.45) L* 07/19/22 17:58 ABG pCO2 57.4 mmHg (35-45) H 07/19/22 17:58 ABG pO2 144.0 mmHg (80.0-100.0) H 07/19/22 17:58 ABG HCO3 12.8 mmol/L (22-26) L 07/19/22 17:58 ABG O2 Saturation 96.8 07/19/22 17:58 ABG Base Excess -19.8 mmol/L (-2.0-2.0) L 07/19/22 17:58 Romero Test Pos 07/19/22 17:58 A-a O2 Gradient 65.7 mmHg (5-10) H 07/19/22 17:58 Hematocrit 47.9 % (37-47) H 07/19/22 17:58 Hgb O2 Saturation 95.2 % (95-100) 07/19/22 17:58 Carboxyhemoglobin 0.6 %THgb (0.4-20.1) 07/19/22 17:58 Methemoglobin 1.0 % (0.4-1.5) 07/19/22 17:58 Total Hemoglobin 15.6 g/dL (12-16) 07/19/22 17:58 Sodium 134.0 mmol/L (131-143) 07/19/22 17:58 Potassium 4.2 mmol/L (3.5-5.0) 07/19/22 17:58 Glucose 133.0 mg/dL (70-115) H 07/19/22 17:58 Ionized Calcium 2.1 mmol/L (1.1-1.4) H* 07/19/22 17:58 O2 Delivery Device Vent 07/19/22 17:58 O2 Liters/Min 15.0 % 07/19/22 16:55 FiO2 100.0 % 07/19/22 17:58 Tidal Volume 0.40 07/19/22 17:58 PEEP 6.0 cmH20 07/19/22 17:58 Product Safety Head ID Cak 07/19/22 17:58 Sodium 132 mmol/L (136-145) L 07/19/22 18:00 Potassium 4.3 mmol/L (3.5-5.1) 07/19/22 18:00 Chloride 90 mmol/L (98-107) L 07/19/22 18:00 Carbon Dioxide 12 mmol/L (22-29) L 07/19/22 18:00 Anion Gap 34.3 (5-19) H 07/19/22 18:00 BUN 46 mg/dL (8-23) H 07/19/22 18:00 Creatinine 2.6 mg/dL (0.5-0.9) H 07/19/22 18:00 GFR Calculation Not Reportable 07/19/22 18:00 Glucose 141 mg/dL (65-115) H 07/19/22 18:00 POC Glucose 138 mg/dL (70-110) H 07/19/22 16:34 Calculated Osmolality 288 mOsm/kg (285-295) 07/19/22 18:00 Lactic Acid 19.0 mmol/L (0.5-2.2) H* 07/19/22 18:00 Calcium 15.9 mg/dL (8.5-10.5) H* 07/19/22 18:00 Total Bilirubin 0.8 mg/dL (0.15-1.2) 07/19/22 18:00 AST 4662 U/L (0-32) H 07/19/22 18:00 ALT 2151 U/L (0-33) H 07/19/22 18:00 Alkaline Phosphatase 413 U/L (35-105) H 07/19/22 18:00 Troponin T Baseline 81 ng/L (0-10) H 07/19/22 18:00 Total Protein 6.9 g/dL (6.6-8.7) 07/19/22 18:00 Albumin 2.6 g/dL (3.5-5.2) L 07/19/22 18:00 Globulin 4.3 g/dL (1.3-4.6) 07/19/22 18:00 TSH 8.82 uIU/mL (0.27-4.20) H 07/19/22 18:00 Critical Care Time Critical Care Time: Critical Care Time: Yes Total Critical Care Time: 110 Attestation: Due to a high probability of clinically significant, possibly life threatening deterioration, the patient required my highest level of attention and preparedness to intervene emergently and I personally spent this critical care time directly and personally managing the patient. This critical care time included obtaining a history; examining the patient; pulse oximetry; ordering and review of laboratory and imaging studies; arranging urgent treatment with development of a management plan; evaluation of patient's response to treatment; frequent reassessment; and, discussions with other providers as applicable. It was exclusive of separately billable procedures. Primary system involved is cardiopulmonary Discharge Plan Discharge Patient Disposition: Clinical Impression: Altered mental status, Cardiac arrest, Septic shock, Pneumonia, GUERO (acute kidney injury), Acidosis, lactic, Shock liver, Non-ST elevation ND (NSTEMI), Metastatic cancer Probable Cause of Probable cause of : Septic shock Coding Level of Care Code ED Dining Room Captain for Raymundo Fwmartha Exam Comprehensive
[2022-07-19 16:23] VITALS: BP 98/70; PULSE 112; RESP 26
[2022-07-19 16:37] LABS: Glucose Point of Care 138 mg/dL (70-110)
--- NOTE | 2022-07-19 16:44 | XRR_ITS ---
PROCEDURE INFORMATION: Exam: XR Chest Exam date and time: 07/19/2022 4:50 PM Age: 71 years old Clinical indication: Patient HX: AMS; Post code TECHNIQUE: Imaging protocol: Radiologic exam of the chest. Views: 1 view. COMPARISON: CR XR thoracic spine 3V* [id number] 08/06/2015 9:03 AM FINDINGS: Tubes, catheters and devices: There is an ET tube situated 3 cm above the sherry in adequate position. There is an NG coursing below the field of view into the stomach. Lungs: Lung pringle are difficult to adequately assess due to technical limitations of the study but there grossly clear without focal infiltrates. Pleural spaces: Unremarkable. No pleural effusion. No pneumothorax. Heart/Mediastinum: Unremarkable. No cardiomegaly. Bones/joints: There is an acute fracture involving the posterolateral aspect of the left 6th rib. XR/XR chest 1V portable [id number] IMPRESSION: Tubes and lines as discussed above. Acute left rib fracture.
--- NOTE | 2022-07-19 16:53 | CTR_ITS ---
PROCEDURE INFORMATION: Exam: CT Head Without Contrast Exam date and time: 07/19/2022 6:45 PM Age: 71 years old Clinical indication: Other: Post code; Additional info: AMS TECHNIQUE: Imaging protocol: Computed tomography of the head without contrast. Radiation optimization: All CT scans at this facility use at least one of these dose optimization techniques: automated exposure control; mA and/or kV adjustment per patient size (includes targeted exams where dose is matched to clinical indication); or iterative reconstruction. COMPARISON: No relevant prior studies available. RADIATION DOSE METRICS: Total DLP (mGy-cm): 1267.83 FINDINGS: Brain: A small hyperdense focus measuring 6-7 mm is noted in the left frontal lobe white matter with surround region of white matter hypodensity which may represent vasogenic edema. Considerations include an underlying brain lesion versus tiny focus of intraparenchymal hemorrhage. Another similar focus is also present in the left superior frontal subcortical region measuring 5 mm. No midline shift or other significant mass effect. Mild periventricular white matter changes, most likely related to chronic microvascular ischemic disease. Mild brain parenchymal atrophy. No other acute intracranial hemorrhage. No mass effect or midline shift. Cerebral ventricles: Some ventricular prominence, likely related to brain parenchymal volume loss. Paranasal sinuses: Small amount of fluid in the maxillary and sphenoid sinuses. Clinical correlation for acute sinusitis should be obtained. Mastoid air cells: Visualized mastoid air cells are well aerated. Bones/joints: Well corticated ossification measuring 9 mm in the anterior nasal bone region which may represent old injury versus benign osteoma. Soft tissues: Unremarkable. CT/CT head wo con* [id number] IMPRESSION: 1. Small hyperdense left frontal white matter foci with surrounding white matter edema. See discussion above. No other acute intracranial hemorrhage or significant midline shift. Follow-up exam with contrast-enhanced MRI should be considered if there is no contraindication. 2. Other nonacute brain findings as above. 3. Sinus findings as above.
[2022-07-19 16:59] LABS: ABG PCO2 57.4 mmHg (35-45); Arterial Blood Gas Hematocrit 43.7 % (37-47); Blood Gas Sample Site Brachial, left; Blood Gas Sample Type Arterial; Carboxyhemoglobin 0.7 %THgb (0.4-20.1); HCO3 ABG 11.3 mmol/L (22-26); HGB O2 Sat 96.5 % (95-100); Methemoglobin 0.9 % (0.4-1.5); Oxygen Device AMBU; Total Hemoglobin 14.3 g/dL (12-16)
[2022-07-19] MEDS: sodium chloride 0.9% 1,000 ML 999 ML IV ×2 (16:59→18:12)
--- NOTE | 2022-07-19 17:01 | PC.NURSE ---
per Dr Hsu VO levophed drip started at 10 mcg/min
--- NOTE | 2022-07-19 17:04 | ECG_ITS ---
[facility] Test Date: 2022-07-19 Pat Name: Mary Ford Department: Room: Gender: Female Hypo Dipper: : 1950 Requested By: See Monsalve Order Number: [id number] Janell MD: Clem Layton M.D. Measurements Intervals [place] Rate: 108 P: 67 [place]: 177 QRS: 24 QRSD: 82 T: -17 QT: 244 QTc: 327 Interpretive Statements SINUS TACHYCARDIA LOW QRS VOLTAGE IN PRECORDIAL LEADS [QRS DEFLECTION < 1.0 mV IN CHEST LEADS] NONSPECIFIC ST & T-WAVE ABNORMALITY No previous ECG available for comparison Electronically Signed On 07-20-2022 6:19:29 [employer]ARCOTICS AND VICE DETECTIVE by Clem Layton M.D. [email or web address]
[2022-07-19 17:12] VITALS: RESP 24; O2SAT 100
[2022-07-19] MEDS: fentaNYL 50 mcg/mL INJ 2mL IVP ×2 (17:12→17:22)
[2022-07-19 17:15] VITALS: RESP 28
[2022-07-19 17:22] VITALS: RESP 29; O2SAT 100
--- NOTE | 2022-07-19 17:29 | XRR_ITS ---
PROCEDURE INFORMATION: Exam: XR Chest Exam date and time: 07/19/2022 5:34 PM Age: 71 years old Clinical indication: Device placement; Patient HX: Central line placement; Additional info: Tube placement/ line placement TECHNIQUE: Imaging protocol: Radiologic exam of the chest. Views: 1 view. COMPARISON: CR (CHEST, ) 07/19/2022 4:50 PM FINDINGS: Tubes, catheters and devices: Patient has undergone placement of these central line via a right jugular approach whose tip terminates at the caval atrial junction. There is an ET tube situated approximately 5 cm above the sherry in satisfactory position. There is an NG tube coursing below the hemidiaphragm into the stomach. Lungs: There are scattered areas of peribronchial cuffing both lung pringle which may be due to vascular congestion. No focal infiltrates detected. Pleural spaces: Unremarkable. No pleural effusion. No pneumothorax. Heart/Mediastinum: Unremarkable. No cardiomegaly. Bones/joints: Unremarkable for age. XR/XR chest 1V portable [id number] IMPRESSION: 1. Tubes and lines in satisfactory position. 2. Questionable vascular congestion both lung pringle.
[2022-07-19 18:09] LABS: ABG PCO2 57.4 mmHg (35-45); Alveolar-Arterial Oxygen Gradi 65.7 mmHg (5-10); Arterial Blood Gas Hematocrit 47.9 % (37-47); Base Excess ABG -19.8 mmol/L (-2.0-2.0); Blood Gas Allen Test Pos; Blood Gas Operator Identificat CAK; Blood Gas Sample Site Radial, left; Blood Gas Sample Type Arterial; Carboxyhemoglobin 0.6 %THgb (0.4-20.1); HCO3 ABG 12.8 mmol/L (22-26); HGB O2 Sat 95.2 % (95-100); Oxygen Device VENT; Oxygen Saturation ABG 96.8; Potassium Level - ABG 4.2 mmol/L (3.5-5.0); Total Hemoglobin 15.6 g/dL (12-16)
[2022-07-19 18:10] LABS: ABG PH Result 6.96 (7.35-7.45); Ionized Calcium Level - ABG 2.1 mmol/L (1.1-1.4)
[2022-07-19 18:10] LABS: Ionized Calcium Level - ABG 1.9 mmol/L (1.1-1.4)
[2022-07-19 18:10] LABS: Basophils # 0.3 10^3/uL (0.0-0.1); Basophils % 0.7 %; Eosinophils # 0.3 10^3/uL (0.0-0.8); Eosinophils % 0.6 %; Hemoglobin 15.1 g/dL (11.5-15.3); Lymphocytes # 6.2 10^3/uL (0.8-4.8); Lymphocytes % 13.6 %; Mean Corpuscular HGB Conc 29.6 g/dL (30.0-36.0); Mean Corpuscular Hemoglobin 27.9 pg (28.0-34.0); Mean Corpuscular Volume 94.3 fl (81-99); Mean Platelet Volume 10.1 fL (7.4-10.4); Monocytes # 1.3 10^3/uL (0.2-0.9); Monocytes % 2.8 %; Neutrophils # 34.75 10^3/uL (1.8-7.7); Nucleated Red Blood Cells # 0.1 /100WBC; Nucleated Red Blood Cells % 0.2 %; Platelet Count 465 10^3/cmm (130-400); Red Blood Count 5.41 10^6/uL (4.1-5.3); Red Cell Distribution Width 15.1 % (12.1-15.1)
[2022-07-19] MEDS: piperacillin-tazobactam 4.5 GM in sodium chloride 0.9% (plus) 50 ML IV (18:12)
[2022-07-19 18:25] LABS: INR 2.04 (0.8-1.2)
[2022-07-19 18:26] LABS: Partial Thromboplastin Time 50.2 SECONDS (23.9-36.7)
[2022-07-19] MEDS: EPINEPHrine 2.5 MG in sodium chloride 0.9% 250 ML 26.39 MG IV (18:29)
[2022-07-19] MEDS: pantoprazole 40 mg SDV 80 MG IVP (18:31)
--- NOTE | 2022-07-19 18:33 | CTR_ITS ---
PROCEDURE INFORMATION: Exam: CT Chest Without Contrast; Diagnostic Exam date and time: 07/19/2022 6:49 PM Age: 71 years old Clinical indication: Other: Post code TECHNIQUE: Imaging protocol: Diagnostic computed tomography of the chest without contrast. Radiation optimization: All CT scans at this facility use at least one of these dose optimization techniques: automated exposure control; mA and/or kV adjustment per patient size (includes targeted exams where dose is matched to clinical indication); or iterative reconstruction. COMPARISON: CR (CHEST, ) 07/19/2022 5:34 PM RADIATION DOSE METRICS: Total DLP (mGy-cm): 1176.24 FINDINGS: Tubes, catheters and devices: There is an endotracheal tube present, with distal tip 3.0 cm above the sherry. There is an enteric tube present with distal tip in the stomach. Lungs: There are multiple noncalcified pulmonary nodules throughout both lungs, measuring up to 8 mm. Bilateral airspace infiltrates noted in the lower lobes and in the posterior right upper lobe, suspicious for pneumonia. Pleural spaces: No pleural effusion or pneumothorax noted. Heart: No cardiomegaly. No pericardial effusion. Coronary arteries: The coronary arteries demonstrate atherosclerotic calcifications. Lymph nodes: Mediastinal and bilateral hilar adenopathy noted. Mediastinal nodes measure up to 20 mm short axis. There is a 32 mm subcarinal lymph node present. Vasculature: Atherosclerosis of the aorta. No aortic aneurysm. Bones/joints: Mild T8 compression fracture of undetermined age. Soft tissues: The soft tissues are unremarkable as demonstrated. PROCEDURE INFORMATION: Exam: CT Abdomen And Pelvis Without Contrast Exam date and time: 07/19/2022 6:49 PM Age: 71 years old Clinical indication: Other: Post code TECHNIQUE: Imaging protocol: Computed tomography of the abdomen and pelvis without contrast. Radiation optimization: All CT scans at this facility use at least one of these dose optimization techniques: automated exposure control; mA and/or kV adjustment per patient size (includes targeted exams where dose is matched to clinical indication); or iterative reconstruction. COMPARISON: CR XR pelvis 1-2V* [id number] 05/07/2022 11:34 AM RADIATION DOSE METRICS: Total DLP (mGy-cm): 1176.24 FINDINGS: Tubes, catheters and devices: There is a Brody catheter present, with retention balloon possibly located within the urethra. Liver: The liver is unremarkable in appearance. Gallbladder and bile ducts: The gallbladder is surgically absent. Pancreas: The pancreas is normal in appearance. No pancreatic duct dilatation. Spleen: The spleen is normal in size and appearance. Adrenal glands: The adrenal glands appear within normal limits. Kidneys and ureters: No renal cortical cyst or mass. Mild bilateral hydroureteronephrosis. No obstructing calculi. Stomach and bowel: Retained stool in the rectum, which may indicate mild constipation. The small bowel is unremarkable as demonstrated. Appendix: No evidence of appendicitis. Intraperitoneal space: No free air. No significant fluid collection. Vasculature: The aorta is atherosclerotic. No aortic aneurysm. Lymph nodes: No pathologically enlarged lymph nodes are demonstrated. Urinary bladder: Urinary bladder is distended, measuring 15 x 11 x 9 cm. There is a Brody catheter seen with the retention balloon near the expected location of the urethra. Reproductive: Unremarkable as visualized. Bones/joints: Osteolytic lesion of the L3 vertebral body. 6 cm lytic, expansile lesion of the mid/distal sacrum. Lytic lesions in the bilateral pubic rami. 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 Soft tissues: Unremarkable. CT/[place] [id number] IMPRESSION: 1. There is an endotracheal tube present, with distal tip 3.0 cm above the sherry. 2. There is an enteric tube present with distal tip in the stomach. 3. There are multiple noncalcified pulmonary nodules throughout both lungs, measuring up to 8 mm. This is concerning for metastatic nodules. Fleischner Society follow up recommendations for incidental nodules are not indicated. Follow up per the patient's medical condition. 4. Mediastinal and bilateral hilar adenopathy noted. Mediastinal nodes measure up to 20 mm short axis. There is a 32 mm subcarinal lymph node present. This is concerning for metastatic adenopathy. 5. Bilateral airspace infiltrates noted in the lower lobes and in the posterior right upper lobe, suspicious for pneumonia. 6. Mild T8 compression fracture of undetermined age. IMPRESSION: 1. Osteolytic lesion of the L3 vertebral body. 6 cm lytic, expansile lesion of the mid/distal sacrum. Lytic lesions in the bilateral pubic rami. 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 2. Urinary bladder is distended, measuring 15 x 11 x 9 cm. There is a Brody catheter seen with the retention balloon near the expected location of the urethra. Repositioning of this catheter is represented to allow for drainage of the urinary bladder. 3. Mild bilateral hydroureteronephrosis. No obstructing calculi. This is likely secondary to over distention of the urinary bladder. 4. No primary neoplastic lesion identified.
[2022-07-19 18:38] LABS: Troponin(5th) Baseline 81 ng/L (0-10)
[2022-07-19 18:41] LABS: Slide Review Slide Review Perform
[2022-07-19 18:45] LABS: Neutrophils % 82.3 %
[2022-07-19 18:47] LABS: Albumin Level 2.6 g/dL (3.5-5.2); Alkaline Phosphatase 413 U/L (35-105); Blood Urea Nitrogen 46 mg/dL (8-23); Carbon Dioxide 12 mmol/L (22-29); Chloride 90 mmol/L (98-107); Globulin 4.3 g/dL (1.3-4.6); Glucose 141 mg/dL (65-115); Osmolality Calculated 288 mOsm/kg (285-295); Sodium 132 mmol/L (136-145); Thyroid Stimulating Hormone 8.82 uIU/mL (0.27-4.20); Total Bilirubin 0.8 mg/dL (0.15-1.2); Total Protein 6.9 g/dL (6.6-8.7)
[2022-07-19 18:50] LABS: White Blood Count 45.6 10^3/uL (4.0-10.0)
[2022-07-19 18:51] LABS: Anion Gap 34.3 (5-19); Potassium 4.3 mmol/L (3.5-5.1)
[2022-07-19 18:53] LABS: Calcium 15.9 mg/dL (8.5-10.5)
[2022-07-19 18:58] VITALS: RESP 22
[2022-07-19 18:59] LABS: Alanine Aminotransferase 2151 U/L (0-33)
[2022-07-19 19:00] LABS: Aspartate Amino Transferase 4662 U/L (0-32)
--- NOTE | 2022-07-19 19:20 | PC.NURSE ---
Dr Monsalve at pt bedside. Pt next of kin, sisterSandra and discussed with Dr Monsalve about putting pt on comfort care d/t pt vital signs. Pt at this time is maxed out on epinepherine and norepinepherine at this time. Pt B/P is 80/55. This RN unable to get a O2 reading. SisterSandra is agreeable to placing pt on comfort care.
--- NOTE | 2022-07-19 19:27 | PC.NURSE ---
pt came in from EMS they stated pt was hypoxic but was communicating some what. pt went into cardiac arrest shortly after arrival. 1638 compressions started 1mg epi administered 1641 tube placed 8 at 24 1642 nola pulse check, pulse was present OG tube placed, medications started, EKG done at this time
[2022-07-19] MEDS: midazolam 1 mg/mL INJ 2 mL 2 MG IVP (19:28)
--- NOTE | 2022-07-19 19:28 | PC.NURSE ---
1927- 2mg of versed administered for pt comfort. Dr Monsalve, family and RT are at bedside. 193- all medications are stopped and unhooked from pt 1932- RT extubates the pt 1944- B/P 65/47 HR 88 1949- This RN and Dr Monsalve both this to pt. Pt TOD is called
--- NOTE | 2022-07-19 19:40 | P.HP_ITS ---
Providers/Chief Complaint Chief Complaint: AMS History of Present Illness Mary Ford is a 71 year old female Medications/Allergies Home Medications Medication Instructions Recorded Confirmed Last Taken Type esomeprazole magnesium 20 mg 20 mg PO QAM 01/11/21 07/19/22 01/11/21 History capsule,delayed release acetaminophen 500 mg tablet 1,000 mg PO Q4H PRN Pain 07/04/21 07/19/22 Unknown History (Tylenol Extra Strength) atorvastatin 20 mg tablet 20 mg PO BEDTIME 05/14/22 07/19/22 Unknown History cholecalciferol (vitamin D3) 25 25 mcg PO QAM 05/14/22 07/19/22 Unknown History mcg (1,000 unit) tablet (Vitamin D3) divalproex 125 mg tablet,delayed 125 mg PO BID@05/14/22 07/19/22 Unknown History release ipratropium 20 mcg-albuterol 100 1 puff inhalation QID PRN 05/14/22 07/19/22 Unknown History mcg/actuation mist for inhalation Shortness Of Breath (Combivent Respimat) levothyroxine 100 mcg tablet 100 mcg PO DAILY@05/14/22 07/19/22 Unknown Hi story meloxicam 7.5 mg tablet 7.5 mg PO DAILY PRN Pain 05/14/22 07/19/22 Unknown History aspirin 81 mg chewable tablet 81 mg PO DAILY 06/16/22 07/19/22 Unknown History rollaid with seat #1 ea 06/16/22 07/19/22 Unknown Rx shower chair #1 ea 06/24/22 07/19/22 Unknown Rx tramadol 50 mg tablet 50 mg PO Q6H PRN pain #60 tabs 07/08/22 07/19/22 Unknown Rx esomeprazole magnesium 20 mg 20 mg PO DAILY 07/19/22 07/19/22 Unknown History capsule,delayed release (Nexium) oxybutynin chloride 10 mg 10 mg PO DAILY 07/19/22 07/19/22 Unknown History tablet,extended release 24 hr Allergies Allergy/AdvReac Type Severity Reaction Status Date / Time codeine Allergy unk Verified 06/16/22 10:04 tetanus and diphtheria Allergy hives Verified 06/16/22 10:04 toxoids PFSH Acute PFSH: Medical History Arthritis COPD (chronic obstructive pulmonary disease) GERD (gastroesophageal reflux disease) Hyperlipidemia Hypertension Hypothyroid Surgical History History of appendectomy History of cholecystectomy History of tonsillectomy Social History Smoking and tobacco status: former smoker Quit status (tobacco): has quit using tobacco Year quit tobacco: 06/14/22 Alcohol intake: never Desire information about alcohol rehabilitation?: No Desire information about substance/drug rehabilitation?: No Lives independently: Yes Current occupational status: disabled Female Reproductive History: Spontaneous abortions: No Vitals/I&O/Wt Last Vital Signs Pulse 112 H 07/19/22 16:23 Resp 22 H 07/19/22 18:58 BP 98/70 07/19/22 16:23 Pulse Ox 100 07/19/22 17:22 FiO2 100 07/19/22 18:58 07/19/22 07/19/22 07/19/22 06:59 14:59 22:59 Intake Total 1043.18 / 1043.18 Balance 1043.18 / 1043.18 Weight last 48 hrs Weight 108.862 kg Data 07/19/22 18:00 07/19/22 18:00 Micro: Microbiology 07/19/22 18:00 Blood Culture - Preliminary Blood SPECIMEN COLLECTED Coding Level of Care Code Acute [employer] Technician for Shaniag Griffin
[2022-07-19 19:52] LABS: Reflex Lactate Order REFLEX LACTIC ORDERD
--- NOTE | 2022-07-19 20:00 | PC.NURSE ---
MTS notified of pt . MTS released pt and stated pt is not a candidate for donation. Ref # [id number]
--- NOTE | 2022-07-19 20:22 | PC.NURSE ---
[employer]ach [employer] Operator Jamie Fierro notified of pt . Reach Truck Operator released body to home. home not assigned by family at this time, will place body in morgue.
--- NOTE | 2022-07-19 21:36 | PC.NURSE ---
@[id number] patient transported to [facility] Via Vibha Barahona and Nicole Barahona .
--- NOTE | 2022-07-20 03:05 | PC.NURSE ---
Saving Site released body @ [id number]
== END 2022-07-19 21:47 | disposition expired ==
PROVIDERS: Emergency Provider Emergency Medicine
DX: R41.82 Altered mental status, unspecified (principal); I46.9 Cardiac arrest, cause unspecified; A41.9 Sepsis, unspecified organism; R65.21 Severe sepsis with septic shock; J18.9 Pneumonia, unspecified organism; N17.9 Acute kidney failure, unspecified; E87.20 Acidosis, unspecified; K72.00 Acute and subacute hepatic failure without coma; I21.4 Non-ST elevation (NSTEMI) myocardial infarction; C80.1 Malignant (primary) neoplasm, unspecified; J44.9 Chronic obstructive pulmonary disease, unspecified; E78.5 Hyperlipidemia, unspecified; I10 Essential (primary) hypertension; Z87.891 Personal history of nicotine dependence
CPT/HCPCS: 31500; 36415; 36416; 36556; 36600; 51702; 70450; 71045; 71250; 74176; 80051; 80053; 82330; 82805; 82962; 83605; 84443; 84484; 85025; 85610; 85730; 87040; 87070; 87077; 87186; 87205; 93005; 94002; 94799; 96365; 96366; 96367; 96368; 96375; 99291; 99292; C9113; J0171; J2250; J2543; J3010; J3490; J7030; J7050; J7060